=== PATIENT | female | born 1985 | race Caucasian/White ===

== ENCOUNTER 2022-03-16 10:57 | Inpatient (IN) | payer MEDICARE, SELFPAY ==
[2022-03-16] VITALS (19 sets, daily range): BP systolic 84–95; BP diastolic 48–64; PULSE 81–125; RESP 16–23; TEMP 36.4–36.9; O2SAT 98–100; BMI 19.1; BMI 18.5
--- NOTE | 2022-03-16 11:13 | ED.VIS.GI ---
HPI HPI - GI History of Present Illness Chief Complaint: Nausea/Vomiting Informant: patient Abdominal Pain/Flank Pain Onset: Days (6) Context: Sudden Onset Timing: Continuous Quality: Aching Location: Diffuse Worsened by: Nothing Relieved by: Nothing Nausea/Vomiting/Emesis GI Symptom: Positive for Nausea and Vomiting Onset: Days (6) Quality: Negative for Blood streaks, Coffee ground and Hematemesis Diarrhea/Melena/Hematochezia GI Symptom: Negative for Diarrhea, Melena and Hematochezia Associated Symptoms Associated Symptoms: Negative for Dysuria and Hematuria Narrative Narrative: Patient presents with nausea, vomiting, and abdominal pain that has been constant for the last 6 days. Patient states that her pain is diffuse across her abdomen. Patient describes it as aching. Patient states nothing makes it better nothing makes it worse. Patient states she is unable to keep anything down. Patient states that everything she tries to eat comes back up. Patient denies any hematemesis or coffee-ground emesis. Patient denies any diarrhea, melena, or hematochezia. Patient states she has not urinated in the last 3 days but denies any dysuria or hematuria prior to that. Patient admits to a fever at home of up to 102. Patient also admits to general myalgias. [facility] Medical History Anxiety Bipolar 1 disorder Depression Home Medications buspirone 30 mg PO BID 03/16/22 [History Last Taken Unknown] cyclobenzaprine [Flexeril] 2.5 mg PO TID PRN 03/16/22 [History Last Taken Unknown] empagliflozin [Jardiance] 25 mg PO DAILY 03/16/22 [History Last Taken Unknown] escitalopram oxalate 20 mg PO DAILY 03/16/22 [History Last Taken Unknown] glipizide 2.5 mg PO BID 03/16/22 [History Last Taken Unknown] hydroxyzine HCl 50 mg PO TID PRN 03/16/22 [History Last Taken Unknown] lamotrigine 50 mg PO DAILY 03/16/22 [History Last Taken Unknown] lisinopril 2.5 mg PO DAILY 03/16/22 [History Last Taken Unknown] lubiprostone 8 mcg PO BID 03/16/22 [History Last Taken Unknown] naproxen 500 mg PO BID PRN 03/16/22 [History Last Taken Unknown] olanzapine 20 mg PO DAILY 03/16/22 [History Last Taken Unknown] omeprazole 40 mg PO DAILY 03/16/22 [History Last Taken Unknown] oxybutynin chloride 10 mg PO DAILY 03/16/22 [History Last Taken Unknown] prazosin 1 mg PO QHS 03/16/22 [History Last Taken Unknown] trazodone 25 mg PO QHS PRN 03/16/22 [History Last Taken Unknown] Allergy/AdvReac Type Severity Reaction Status Date / Time codeine AdvReac Other Verified 03/16/22 11:07 sulfamethoxazole AdvReac Nausea/Vom/ Verified 03/16/22 11:07 [From Bactrim] Diarrhea tramadol AdvReac Other Verified 03/16/22 11:07 trimethoprim [From Bactrim] AdvReac Nausea/Vom/ Verified 03/16/22 11:07 Diarrhea Surgical History H/O: hysterectomy Hx of section Tubal ligation status Social History Smoking Status: Current every day smoker tobacco type: cigarettes ROS ROS ED Constitutional Constitutional ED: Reports chills and fever(s) Eyes Eyes: Denies blurry vision or change in vision ENT ENT ED: Reports sore throat; Denies rhinorrhea Cardiovascular Cardiovascular: Denies chest pain or palpitations Respiratory/Chest Respiratory/Chest: Denies cough or dyspnea Gastrointestinal Gastrointestinal: Reports abdominal pain, nausea and vomiting; Denies diarrhea or melena Genitourinary Genitourinary ED: Denies dysuria or hematuria Musculoskeletal Musculoskeletal: Reports back pain and myalgias; Denies neck pain Integumentary Denies abscess or rash Neurologic Neurologic: Reports headache(s); Denies weakness Allergic/Immunologic Allergic/Immunologic ED: Denies mouth swelling or urticaria EXAM Physical Exam Const Vital Signs: 03/16/22 11:00 03/16/22 11:05 03/16/22 12:05 Temperature 97.6 F L 97.6 F L 98 F Temperature Source Temporal Temporal Temporal Pulse Rate 125 H 115 H 99 Respiratory Rate 16 16 18 Blood Pressure 86/50 L 86/50 L 94/57 L Blood Pressure Mean 62 62 69 Pulse Ox 100 100 99 Oxygen Delivery Method Room Air Room Air Room Air 03/16/22 13:08 Temperature 98 F Temperature Source Temporal Pulse Rate 100 Respiratory Rate 18 Blood Pressure 92/58 L Blood Pressure Mean 69 Pulse Ox 100 Oxygen Delivery Method Room Air Positive well nourished, well developed and unkempt General Appearance ED: unkempt, well developed and NAD HEENT Reports moist mucous membranes Neck supple and no JVD Resp normal respiratory effort and clear to auscultation bilaterally Cardio regular rate, regular rhythm and no murmurs GI normal to inspection, nondistended, normoactive bowel sounds and non-distended Auscultation: normoactive bowel sounds Palpation: soft and tender epigastric, LLQ, RLQ, LUQ, RUQ, periumbilical and suprapubic Extremity normal to inspection General Extremety ED: Negative for edema or tenderness General Extremity: Negative for edema Neuro oriented x3, CN's II-XII intact bilaterally and no sensory deficits noted Sensorium / Orientation: alert Motor Exam: strength 5/5 throughout Psych mental status grossly normal Appearance: unkempt Skin no rashes or lesions noted MDM MDM MDM Narrative Medical decision making narrative: Patient was given 2 L of IV fluids. CBC shows a leukocytosis of 13.3. Hemoglobin was 10.7 and hematocrit was 33.7. Comprehensive metabolic profile showed a creatinine of 7.91 and a BUN of 68. Anion gap was elevated at 17. Sodium was 125 and chloride was 87. CO2 was normal at 21. Glucose was elevated at 147. Urinalysis shows cloudy yellow urine with a specific gravity of 1.015. Leukocyte esterase was 500 with 50-100 white blood cells and 3+ bacteria. Ketones were 5. Glucose was 250. Lactate was normal at 1.0. COVID-19 rapid antigen was obtained and was positive. Influenza A swab was negative. Influenza B swab was positive. CT scan of the abdomen pelvis was ordered. There is no acute intra-abdominal abnormality. This was interpreted by the radiologist and reviewed by myself. Blood cultures were obtained. Urine culture was ordered. Patient was started on Rocephin. Patient was also started on insulin drip. Case was discussed with the hospitalist. She will admit the patient to ICU. Patient understood and was agreeable with the plan. All questions were answered. Lab Data Attestation: I reviewed the patient's lab results. Labs: Laboratory Results - last 24 hr 03/16/22 03/16/22 03/16/22 11:24 11:24 11:40 WBC 13.3 H RBC 4.54 Hgb 10.7 L Hct 33.7 L MCV 74.2 L MCH 23.6 L MCHC 31.8 L RDW Std Deviation 65.1 H RDW Coeff of Tavo 25.0 H Plt Count 446 MPV 10.1 Immature Gran % (Auto) 0.600 Neut % (Auto) 79.7 H Lymph % (Auto) 8.9 L [place] % (Auto) 10.4 H Eos % (Auto) 0.2 Baso % (Auto) 0.2 Absolute Neuts (auto) 10.6 H Absolute Lymphs (auto) 1.18 Nucleated RBC % 0 Differential Comment SCANNED Anisocytosis 2+ Sodium 125 L Potassium 3.6 Chloride 87 L Carbon Dioxide 21.0 Anion Gap 17 H BUN 68 H Creatinine 7.91 H* Estim Creat Clear Calc 8.79 Est GFR (MDRD) Af Amer 7 L Est GFR (MDRD) Non-Af 6 L BUN/Creatinine Ratio 8.6 L Glucose 147 H Lactic Acid Calcium 8.7 Total Bilirubin 1.20 H AST 15 ALT 20 Alkaline Phosphatase 238 H Total Protein 8.0 Albumin 2.6 L Globulin 5.4 H Albumin/Globulin Ratio 0.5 L Lipase 35 L Urine Color Yellow Urine Clarity Cloudy Urine pH 5.0 Ur Specific [place] 1.015 Urine Protein 30 H Urine Glucose (UA) 250 H Urine Ketones 5 H Urine Occult Blood 50 H Urine Nitrite Negative Urine Bilirubin 1 H Urine Urobilinogen Normal Ur Leukocyte Esterase 500 H Urine RBC 0-5 SEEN Urine WBC 50-100 SEEN Ur Squamous Epith Cells 0-5 SEEN Urine Bacteria 3+ Urine Mucus 0 SEEN 03/16/22 12:30 WBC RBC Hgb Hct MCV MCH MCHC RDW Std Deviation RDW Coeff of [place] Plt Count MPV Immature Gran % (Auto) Neut % (Auto) Lymph % (Auto) [place] % (Auto) Eos % (Auto) Baso % (Auto) Absolute Neuts (auto) Absolute Lymphs (auto) Nucleated RBC % Differential Comment Anisocytosis Sodium Potassium Chloride Carbon Dioxide Anion Gap BUN Creatinine Estim Creat Clear Calc Est GFR (MDRD) Af Amer Est GFR (MDRD) Non-Af BUN/Creatinine Ratio Glucose Lactic Acid 1.0 Calcium Total Bilirubin AST ALT Alkaline Phosphatase Total Protein Albumin Globulin Albumin/Globulin Ratio Lipase Urine Color Urine Clarity Urine pH Ur Specific [place] Urine Protein Urine Glucose (UA) Urine Ketones Urine Occult Blood Urine Nitrite Urine Bilirubin Urine Urobilinogen Ur Leukocyte Esterase Urine RBC Urine WBC Ur Squamous Epith Cells Urine Bacteria Urine Mucus Radiography Diagnostic Testing: Clinical Impression(s) from Imaging Studies Abdomen CT 03/16/22 11:59 IMPRESSION: Hepatomegaly. Sludge or gallstones in the gallbladder lumen. Moderate amount of fecal material is seen in the colon. 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
[2022-03-16] MEDS: Ondansetron 4 MG/2 ML Vial IV (11:29)
[2022-03-16] MEDS: 0.9% Normal Saline 1,000 ML 1000 ML IV ×2 (11:29→12:20)
[2022-03-16 11:36] LABS: Absolute Lymphocyte Count 1.18 X10^3/uL (0.83-4.51); Absolute Neutrophil Count 10.6 X10^3/uL (2.0-7.7); Basophil# 0.02 X10^3/uL; Basophil% 0.2 % (0-1); Eosinophil# 0.03 X10^3/uL; Eosinophils% 0.2 % (0-5); Hematocrit 33.7 % (37-47); Hemoglobin 10.7 g/dL (12.0-15.0); Lymphocyte # 1.18 X10^3/ul (0.83-4.51); Lymphocyte % 8.9 % (19-41); Mean Corp Hgb Conc 31.8 g/dL (32-36); Mean Corpuscular Hgb 23.6 pg (27.0-32.0); Mean Corpuscular Volume 74.2 fL (81-99); Mean Platelet Vol. 10.1 fl (6.2-12.0); Monocyte# 1.39 X10^3/uL; Monocyte% 10.4 % (0-10); NRBC Flagged by Analyzer 0 % (0-5); Neutrophil # 10.63 X10^3/uL (2.7-7.7); Neutrophil % 79.7 % (47-70); POSITIVE MORPHOLOGY YES; Platelet Count 446 K/mm3 (150-450); RBC Distribution Width SD 65.1 fl (35.1-43.9); Red Blood Count 4.54 M/mm3 (4.2-5.4); White Blood Count 13.3 K/mm3 (4.4-11.0)
[2022-03-16 11:44] LABS: Mucous, Urine 0 SEEN /hpf (<or=2+)
[2022-03-16 11:45] LABS: Color, Urine Yellow (Yellow); Glucose, Dipstick 250 mg/dl (Normal); Ketone-Dipstick 5 mg/dl (Negative); Leukocyte Esterase-Dipstick 500 /ul (Negative); Nitrite-Dipstick Negative (Negative); Occult Blood-Urine 50 /ul (Negative); Protein-Dipstick 30 mg/dl (Negative); Specific Gravity, Urine 1.015 (1.002-1.030); Urine Clarity Cloudy (Clear); Urine Urobilinogen Normal (Normal)
[2022-03-16 11:46] LABS: Differential Indicated SCAN CRITERIA MET
[2022-03-16 11:47] LABS: Urine Bilirubin Dipstick 1 mg/dL (Negative)
[2022-03-16 11:53] LABS: White Blood Cells 50-100 SEEN /hpf (0-5)
[2022-03-16 11:54] LABS: Bacteria 3+ /hpf (None Seen); Squamous Epithelial Cells - UA 0-5 SEEN /hpf (5-10)
[2022-03-16 11:54] LABS: ALB/GLOB Ratio 0.5 RATIO (0.9-2.4); AST(SGOT) 15 U/L (15-37); Alanine Aminotransfer ALT/SGPT 20 U/L (13-56); Albumin, Serum 2.6 g/dL (3.2-5.0); Alkaline Phosphatase 238 U/L (45-117); Anion Gap 17 (5-15); BUN 68 mg/dL (7-18); BUN/Creat Ratio 8.6 RATIO (10-20); Calcium,Total 8.7 mg/dL (8.5-10.1); Chloride 87 mmol/L (98-107); Creatinine, Serum 7.91 mg/dL (0.55-1.02); EST Glomerular Filtration Rate 6 mL/min (>60); Est Glom Filt Rate - Afr Amer 7 mL/min (>60); Estimated Creatinine Clearance 8.79 ml/min; Globulin 5.4 g/dL (2.2-4.2); Glucose 147 mg/dL (74-106); Lipase 35 U/L (73-393); Potassium 3.6 mmol/L (3.5-5.1); Sodium Level 125 mmol/L (136-145)
[2022-03-16 11:58] LABS: Red Blood Cells-Urine 0-5 SEEN /hpf (0-5)
--- NOTE | 2022-03-16 11:59 | CT_ITS ---
STUDY: CT ABDOMEN AND PELVIS WITHOUT CONTRAST REASON FOR EXAM: Female, 37 years old. 6 day history of nausea and vomiting with body aches and chills. RADIATION DOSAGE (If Supplied By Facility): CTDIvol = ( 6.10 ) mGy, DLP = ( 297.02 ) mGycm TECHNIQUE: Transaxial images were obtained from the dome of the diaphragm to the symphysis pubis without oral contrast, and without intravenous contrast. Sagittal and coronal images were reconstructed. Individualized dose optimization techniques were used for this CT. COMPARISON: Comparison is made with prior examination dated 05/20/2015. FINDINGS: The visualized lung bases are unremarkable. Minimal pericardial thickening. Hepatomegaly. Increased density seen within the gallbladder lumen. This is suggestive of either gallstones or sludge. Normal spleen. Normal pancreas. Normal bilateral adrenal glands. Normal right kidney. Normal left kidney. Normal visualized stomach. Normal small intestine. Moderate amount of fecal material is seen in the colon. The appendix is visualized and appears normal. Normal abdominal aorta. Normal inferior vena cava. There is borderline retroperitoneal lymphadenopathy with enlarged nodes no greater than 10mm in the short axis diameter. Normal urinary bladder. Follicles are seen in the right ovary. The patient is status post bilateral tubal ligation. There is a small umbilical hernia containing fat. Normal osseous structures. CT/Abdomen/Pel W ORAL Cont Only IMPRESSION: Hepatomegaly. Sludge or gallstones in the gallbladder lumen. Moderate amount of fecal material is seen in the colon. Electronically Signed: Joey Dang MD at 13:44 EDT ,
[2022-03-16 12:18] LABS: Anisocytosis 2+; Differential Comment SCANNED
[2022-03-16] MEDS: Morphine 4 MG/ML Syringe IV (12:18)
--- NOTE | 2022-03-16 12:18 | CM.ED ---
Social Work Note Pt has no PCP listed. SW in to speak with pt. SW introduced self. Pt states she has a PCP in [place] at [facility]. Pt states she would look a list of PCP in the area. SW provided pt with PCP list. Gertrudis Baldwin [employer] CONS[employer]ANT, [employer]
[2022-03-16] MEDS: Ceftriaxone 1 GM/50 ML BAG IV (12:38)
--- NOTE | 2022-03-16 13:52 | HP.PCM.HOS_ITS ---
HPI - General General Date of Admission: 03/16/22 Date of Service: 03/16/22 Chief Complaint: N/V, body aches, chills. HPI Narrative The patient is a 37 y/o F w/ PMHx: Microcytic anemia, Anxiety and Depression/Bipolar disorder, NIDDM, GERD, Tobacco use who presents to the [facility] ED on 03/16/22 with history of subjective fever, chills, frontal headaches, sore throat, congestion, alteration in sense of taste and smell, abdominal cramping with nausea and emesis in addition to body aches and mild dry cough but no dyspnea or diarrhea reporting that she did get vaccinated against COVID with the 2 dose Pfizer series but has not had any boosters. She additionally notes recent suprapubic discomfort and dysuria. Work-up in the ED included T97.6, heart rate 125, BP initially 86/50 with most recent repeat 92/58, respiratory rate 16, 100% on room air, CBC with WC 13.3, hemoglobin 10.7 with an MCV 74.2, platelet 446 with left shift, CMP with sodium 125, chloride 87, BUN/creatinine 68/7.91, anion gap 17, glucose 147, lactic acid 1.0, T bili 1.20, alk phos 238, lipase 35, urinalysis with elevated specific remedy 1.015, glucose 250, ketones 5, occult blood 50, negative nitrite, leukocyte esterase 500, urine WBCs 50-100 with 3+ urine bacteria, blood culture x2 pending per ED, rapid SARS and influenza with positive COVID and positive influenza B antigen, CT A/P with noted hepatomegaly, sludge or gallstones in the gallbladder lumen, moderate amount of fecal material is seen in the colon. In the ED patient ministered 2 L normal saline, Rocephin, morphine and Zofran therapy. Discussed with ED physician and given elevated anion gap, hyperglycemia and mild ketosis and the acute setting decision to initiate insulin drip although it may be short in duration especially if patient becomes hypoxic and necessitates steroids. PFSH Medical History Anxiety Bipolar 1 disorder Depression Microcytic anemia Tobacco use Home Medications buspirone 30 mg PO BID 03/16/22 [History Last Taken Unknown] cyclobenzaprine [Flexeril] 2.5 mg PO TID PRN 03/16/22 [History Last Taken Unknown] empagliflozin [Jardiance] 25 mg PO DAILY 03/16/22 [History Last Taken Unknown] escitalopram oxalate 20 mg PO DAILY 03/16/22 [History Last Taken Unknown] glipizide 2.5 mg PO BID 03/16/22 [History Last Taken Unknown] hydroxyzine HCl 50 mg PO TID PRN 03/16/22 [History Last Taken Unknown] lamotrigine 50 mg PO DAILY 03/16/22 [History Last Taken 03/16/22] lisinopril 2.5 mg PO DAILY 03/16/22 [History Last Taken Unknown] lubiprostone 8 mcg PO BID 03/16/22 [History Last Taken Unknown] naproxen 500 mg PO BID PRN 03/16/22 [History Last Taken Unknown] olanzapine 20 mg PO DAILY 03/16/22 [History Last Taken Unknown] omeprazole 40 mg PO DAILY 03/16/22 [History Last Taken Unknown] oxybutynin chloride 10 mg PO DAILY 03/16/22 [History Last Taken Unknown] prazosin 1 mg PO QHS 03/16/22 [History Last Taken Unknown] trazodone 25 mg PO QHS PRN 03/16/22 [History Last Taken Unknown] Allergy/AdvReac Type Severity Reaction Status Date / Time codeine AdvReac Other Verified 03/16/22 11:07 sulfamethoxazole AdvReac Nausea/Vom/ Verified 03/16/22 11:07 [From Bactrim] Diarrhea tramadol AdvReac Other Verified 03/16/22 11:07 trimethoprim [From Bactrim] AdvReac Nausea/Vom/ Verified 03/16/22 11:07 Diarrhea Family History (Updated 03/16/22 @ 14:[address] Shante Madrid MD) Mother Diabetes other (Patient denies marked paternal family history including HD, DM, CA.) Surgical History (Updated 03/16/22 @ 14:[address] Shante Madrid MD) H/O: hysterectomy History of repair of congenital cleft palate Hx of section Tubal ligation status Social History (Updated 03/16/22 @ 14:[address] Shante Madrid MD) household members: significant other Smoking Status: Current every day smoker tobacco type: cigarettes Smoking packs per day: 0.75 Smoking cigarettes per day: 15.0 Years smoked: 19 Smoking pack-years: 14.25 alcohol intake: never substance use type: does not use ROS ROS Narrative Admission Review of Systems: CONSTITUTIONAL: No weight loss, + fever, chills, weakness or fatigue. HEENT: + Headache, sore throat. Eyes: No visual loss, blurred vision, double vision or yellow sclerae. Ears, Nose, Throat: No hearing loss, sneezing. SKIN: No rash or itching, lesions, wounds. CARDIOVASCULAR: No chest pain, chest pressure or chest discomfort, palpitations, edema, orthopnea, syncopal events. RESPIRATORY: + cough, No marked shortness of breath, marked sputum, wheezing, hemoptysis. GASTROINTESTINAL: + Anorexia, nausea, vomiting, abdominal cramping, No diarrhea, melena, BRBPR. GENITOURINARY: + dysuria, frequency, suprapubic discomfort. NEUROLOGICAL: + headache, No dizziness, syncope, paralysis, ataxia, numbness or tingling in the extremities, focal weakness, change in bowel or bladder control, seizure. MUSCULOSKELETAL: + muscle, back pain, joint pain or stiffness. HEMATOLOGIC: + anemia, bleeding or bruising. LYMPHATICS: No enlarged nodes. No history of splenectomy. PSYCHIATRIC: + history of depression or anxiety. ENDOCRINOLOGIC: No reports of sweating, cold or heat intolerance. No polyuria or polydipsia. ALLERGIES: No history of asthma, hives, eczema or rhinitis. Vital Signs Vital Signs Vital Signs: 03/16/22 11:00 03/16/22 11:05 03/16/22 12:05 Temperature 97.6 F L 97.6 F L 98 F Temperature Source Temporal Temporal Temporal Pulse Rate 125 H 115 H 99 Respiratory Rate 16 16 18 Blood Pressure 86/50 L 86/50 L 94/57 L Blood Pressure Mean 62 62 69 Pulse Ox 100 100 99 Oxygen Delivery Method Room Air Room Air Room Air 03/16/22 13:08 Temperature 98 F Temperature Source Temporal Pulse Rate 100 Respiratory Rate 18 Blood Pressure 92/58 L Blood Pressure Mean 69 Pulse Ox 100 Oxygen Delivery Method Room Air Weight Weight: 126 lb 1.6 oz Body Mass Index (BMI) 19.1 Physical Exam Narrative Physical Examination: General: Awake, alert, oriented x 3 and cooperative, seated upright in the ED bed, fatigued and ill-appearing.. Skin: Normal color, normal turgor, no icterus, no cyanosis, noted new tattoo R forearm, no crusting or erythema noted. HEENT: AT/NC, EOMI, PERRLA, dry MM, no carotid bruits or JVD noted. Lungs: Diminished, greater bases, moderate effort, no rales, ronchi or wheezing. Heart: Tachycardic with regular rhythm; no gallop, rub audible. Abdomen: Soft, generalized TTP and suprapubic TTP, ND, hyperactive BS, no marked HSM. Extremities: No cyanosis, clubbing, or edema. Neurological: Patient awake, alert, oriented as noted, cognitive function intact; pupils equally reactive to light and accommodation, cranial nerves II- XII grossly normal, moving all 4 extremities, no focal deficits, strength moderately to severely globally decreased secondary to acute presentation. Psychiatric: Affect appears fatigued, ill-appearing, no acute evidence of depressive or anxiety feelings. Results Lab / Micro Data Result Diagrams: 03/16/22 11:24 03/16/22 11:24 Labs: Laboratory Results - last 24 hr 03/16/22 11:24: WBC 13.3 H, RBC 4.54, Hgb 10.7 L, Hct 33.7 L, MCV 74.2 L, MCH 23.6 L, MCHC 31.8 L, RDW Std Deviation 65.1 H, RDW Coeff of Tavo 25.0 H, Plt Count 446, MPV 10.1, Immature Gran % (Auto) 0.600, Neut % (Auto) 79.7 H, Lymph % (Auto) 8.9 L, Gaston % (Auto) 10.4 H, Eos % (Auto) 0.2, Baso % (Auto) 0.2, Absolute Neuts (auto) 10.6 H, Absolute Lymphs (auto) 1.18, Nucleated RBC % 0, Differential Comment SCANNED, Anisocytosis 2+ 03/16/22 11:24: Sodium 125 L, Potassium 3.6, Chloride 87 L, Carbon Dioxide 21.0, Anion Gap 17 H, BUN 68 H, Creatinine 7.91 H*, Estim Creat Clear Calc 8.79, Est GFR (MDRD) Af Amer 7 L, Est GFR (MDRD) Non-Af 6 L, BUN/Creatinine Ratio 8.6 L, Glucose 147 H, Calcium 8.7, Total Bilirubin 1.20 H, AST 15, ALT 20, Alkaline Phosphatase 238 H, Total Protein 8.0, Albumin 2.6 L, Globulin 5.4 H, Albumin/Globulin Ratio 0.5 L, Lipase 35 L 03/16/22 11:40: Urine Color Yellow, Urine Clarity Cloudy, Urine pH 5.0, Ur Speci fic [place] 1.015, Urine Protein 30 H, Urine Glucose (UA) 250 H, Urine Ketones 5 H, Urine Occult Blood 50 H, Urine Nitrite Negative, Urine Bilirubin 1 H, Urine Urobilinogen Normal, Ur Leukocyte Esterase 500 H, Urine RBC 0-5 SEEN, Urine WBC 50-100 SEEN, Ur Squamous Epith Cells 0-5 SEEN, Urine Bacteria 3+, Urine Mucus 0 SEEN 03/16/22 12:30: Lactic Acid 1.0 Micro: Microbiology 03/16/22 11:35 Nasal Secretion SARS-CoV-2 & FLU Antigen (Rapid) - Final Influenzae B SARS-CoV-2 (COVID 19) Radiology Impression Abdomen CT 03/16/22 11:59 IMPRESSION: Hepatomegaly. Sludge or gallstones in the gallbladder lumen. Moderate amount of fecal material is seen in the colon. Electronically Signed: Joey Dang MD at 13:44 EDT Reading Location ID and State: [facility] / [place] , Service support , Assessment & Plan Assessment/Plan (1) COVID-19: (2) Diabetic ketoacidosis: QUALIFIERS: Diabetes mellitus type: other specified (including SELVIN) Diabetes mellitus complication detail: without coma Qualified Code(s): E13.10 - Other specified diabetes mellitus with ketoacidosis without coma (3) Urinary tract infection: QUALIFIERS: Urinary tract infection type: acute cystitis Hematuria presence: without hematuria Qualified Code(s): N30.00 - Acute cystitis without hematuria (4) Acute kidney injury: (5) Sepsis: QUALIFIERS: Sepsis type: sepsis due to unspecified organism Sepsis acute organ dysfunction status: with acute organ dysfunction Severe sepsis acute organ dysfunction type: acute renal failure Acute renal failure type: unspecified Severe sepsis shock status: without septic shock Qualified Code(s): A41.9 - Sepsis, unspecified organism; R65.20 - Severe sepsis without septic shock; N17.9 - Acute kidney failure, unspecified PLAN: The patient is a 37 y/o F w/ PMHx: Microcytic anemia, Anxiety and Depression/Bipolar disorder, NIDDM, GERD, Tobacco use who presents to the [facility] ED on 03/16/22 with history of subjective fever, chills, frontal headaches, sore throat, congestion, alteration in sense of taste and smell, abdominal cramping with nausea and emesis in addition to body aches and mild dry cough but no dyspnea or diarrhea reporting that she did get vaccinated against COVID with the 2 dose Pfizer series but has not had any boosters with concurrent suprapubic discomfort/dysuria. #1. Acute Sepsis secondary to Intractable N/V, Myalgias secondary to Acute Viral Syndrome, COVID-19 and Possible Acute Influenza B Syndrome (lower suspicion, suspect false positive) in addition to #3, complicated by #2 and #4/#5: Will admit to the ICU given DKA concurrently, ICU physician consulted, maintain on COVID precautions with request for full respiratory panel and COVID PCR as the testing with omicron has often been false, will maintain on oxygen with wean as tolerated to room air, PRN albuterol, HOB, IS parameters w/ pending sputum cultures and urine antigens, will obtain D-dimer, procalcitonin, CRP, CPK, Ferritin, LDH, trop and BNP, will obtain CXR, will continue supportive care including q 2 hour turning including prone given no prone bed availability, given no hypoxia will defer steroids especially in DKA setting, will await full respiratory panel given poor renal function and if confirmation of positive influenza may initiate renally dosed tamiflu, given DKA will continue with aggressive fluids but closely monitor especially if confirmation COVID. #2. DKA w/ Diabetes mellitus type II: Will admit to the ICU, continue on insulin drip, check serial K+, glucose w/ IVF changes pending these levels, serial chemistry, obtain mag, phos daily w/ repletion as needed, transition to home SC regimen when gap closed w/ overlap on drip, nutrition consultation. Encouraged diet and insulin regimen compliance. HgbA1c pending. Holding low-do se lisinopril given JACKELYN concurrently. #3. Acute Complicated Urinary Tract Infection, labs more consistent with Pyelonephritis; however, no stranding on CT: UA upon ED evaluation remarkable, pending UCx, continue IVFs, monitor I/Os, continue IV Rocephin w/ transition as able pending sensitivities and speciation. Bld cx x 2 obtained in the ED. #4. Acute kidney injury: Secondary to acute presentation as noted #1, #2. Admission BUN/Cr 68/7.91, prior baseline creatinine noted to be 0.8-0.9. Will hydrate, hold nephrotoxic medications and repeat chemistry in AM. Will obtain FeNa assessment. #5. Electrolyte disturbances: Patient with significant electrolyte disturbance in the setting of significant GI losses with DKA concurrently, continue treatments as noted above, trend serial BMPs as noted. #6. Anxiety and Depression/bipolar disorder: We will continue patient medication however given renal function may need to alter regimen pending further BMP trending. #7. Tobacco Abuse: Encouraged cessation, inpatient consultation per RT, NR if desired. #8. Microcytic anemia: Admission hemoglobin 10.7, MCV 74.2, most recent prior labs to this 10/2015 noted to be 12-13, not on any outpatient iron supplementation per review of records, Fe panel, ferritin, guiac requested. #9. DVT prophylaxis: SCDs, heparin. Charges/Coding Visit Charges Inpatient E&M: 23674 Init Hosp L3
[2022-03-16 14:06] LABS: Bedside Glucose 150 mg/dL (74-106)
--- NOTE | 2022-03-16 14:30 | RAD_ITS ---
STUDY: X-RAY CHEST REASON FOR EXAM: Female, 37 years old. COVID TECHNIQUE: PA and lateral views of the chest. COMPARISON: None. FINDINGS: The lungs are clear and expanded. There is no demonstrated pleural abnormality. Normal size heart. Normal mediastinum and elizabeth. Normal visualized pulmonary arteries. Normal visualized aortic arch and descending thoracic aorta. Normal visualized thoracic spine. Normal visualized ribs, clavicles, and shoulders. There is no demonstrated abnormality of the visualized soft tissue structures of the upper abdomen. RAD/Chest PA and Lateral IMPRESSION: Normal x-ray examination of the chest. Electronically Signed: Joey Dang MD at 14:51 EDT ,
[2022-03-16 15:04] LABS: Amphetamine Urine VISTA NEGATIVE (<1000 ng/mL); Barbiturate Urine VISTA NEGATIVE (< 200 ng/mL); Benzodiazepine Urine VISTA NEGATIVE (< 200 ng/mL); Cocaine Urine VISTA NEGATIVE (< 300 ng/mL); Ecstacy Urine VISTA NEGATIVE (< 500 ng/mL); Methadone Urine VISTA NEGATIVE (< 300 ng/mL); PCP Urine VISTA NEGATIVE (< 25 ng/mL); THC Urine VISTA POSITIVE (< 50 ng/mL); Vista UDS pH Range 5
[2022-03-16] MEDS: Dext 5%-0.45% NS 1,000 ML 150 ML IV (15:05)
[2022-03-16] MEDS: Acetaminophen 325 MG Tablet 650 MG PO (15:59)
[2022-03-16] MEDS: 0.9% Normal Saline 1,000 ML 999 ML IV ×3 (16:00→21:47)
[2022-03-16 16:10] LABS: Urine Sodium 47 mmol/L (Not Establ.)
[2022-03-16 16:16] LABS: Bedside Glucose 75 mg/dL (74-106)
[2022-03-16 17:01] LABS: Anion Gap 12 (5-15); BUN 64 mg/dL (7-18); BUN/Creat Ratio 9.2 RATIO (10-20); Calcium,Total 7.2 mg/dL (8.5-10.1); Chloride 97 mmol/L (98-107); Creatinine, Serum 6.94 mg/dL (0.55-1.02); EST Glomerular Filtration Rate 7 mL/min (>60); Est Glom Filt Rate - Afr Amer 9 mL/min (>60); Estimated Creatinine Clearance 9.67 ml/min; Ferritin 105 ng/mL (8-252); Glucose 82 mg/dL (74-106); LDH 247 U/L (84-246); Magnesium 2.1 mg/dL (1.6-2.6); Phosphorus 3.9 mg/dL (2.5-4.9); Potassium 3.6 mmol/L (3.5-5.1); Sodium Level 127 mmol/L (136-145); Troponin-I HS < 3 pg/mL (3.0-54.0)
[2022-03-16 17:16] LABS: Bedside Glucose 73 mg/dL (74-106)
[2022-03-16 17:33] LABS: D-Dimer Quantitative (DVT/PE) 2.44 FEU/ug/m (0.27-0.49)
--- NOTE | 2022-03-16 17:40 | VDLE_ITS ---
Reason For Study: Elevated D Dimer RIGHT LEFT GSV is normal. GSV is normal. CFV, FV, and Pop V are compressible. CFV, FV, and Pop V are compressible. T/P Trunk is compressible. T/P Trunk is compressible. PTV is compressible. PTV is compressible. RT PerV is compressible. LT PerV is compressible. Procedure This is a venous duplex using B-mode, color flow and spectral Doppler. Exam performed portable in ICU/CCU. The exam was abbreviated due to the COVID 19 protocol. A preliminary report was called and/or faxed to [employer]. VL/Venous Duplex US - Efrain Extrem Interpretation Summary No evidence for acute deep venous thrombosis bilateral lower extremities with p atent and compressible bilateral great saphenous veins. Abbreviated COVID-19 protocol uti lized Ordering Physician: Shante Madrid Performed By: Marlon Nieves
[2022-03-16 19:21] LABS: Bedside Glucose 86 mg/dL (74-106)
[2022-03-16 19:46] LABS: Bedside Glucose 75 mg/dL (74-106)
[2022-03-16 20:02] LABS: Procalcitonin 0.89 ng/mL (0.00-0.09)
[2022-03-16 20:11] LABS: Anion Gap 10 (5-15); BUN 59 mg/dL (7-18); Calcium,Total 6.9 mg/dL (8.5-10.1); Chloride 100 mmol/L (98-107); Creatinine, Serum 6.57 mg/dL (0.55-1.02); EST Glomerular Filtration Rate 8 mL/min (>60); Est Glom Filt Rate - Afr Amer 9 mL/min (>60); Estimated Creatinine Clearance 10.22 ml/min; Glucose 70 mg/dL (74-106); Potassium 3.6 mmol/L (3.5-5.1); Sodium Level 130 mmol/L (136-145)
[2022-03-16 20:26] LABS: BNP,B-Type NATRIURETIC PEPTIDE 22.2 pg/mL (0-100)
[2022-03-16] MEDS: BENZOCAINE/MENTHOL 1 LOZENGE MUCOUS MEM (20:46)
[2022-03-16] MEDS: Heparin Injection (Vial) 5,000 UNIT/ML VIAL 5000 UNIT SC (20:46)
[2022-03-16] MEDS: Doxazosin 1 MG Tablet PO (20:47)
[2022-03-16] MEDS: busPIRone 15 MG TABLET 30 MG PO (21:47)
[2022-03-16] MEDS: 0.9% Normal Saline 1,000 ML 200 ML IV (23:01)
[2022-03-16] MEDS: cycloBENZAPRine HCl 5 MG TABLET 2.5 MG PO (23:37)
[2022-03-16 23:55] LABS: Bedside Glucose 72 mg/dL (74-106)
[2022-03-16 23:55] LABS: Bedside Glucose 72 mg/dL (74-106)
[2022-03-17] VITALS (13 sets, daily range): BP systolic 92–108; BP diastolic 53–76; PULSE 88–116; RESP 16–25; TEMP 36.6–37.4; O2SAT 95–100
[2022-03-17 00:53] LABS: Anion Gap 10 (5-15); BUN 53 mg/dL (7-18); BUN/Creat Ratio 9.2 RATIO (10-20); Calcium,Total 6.9 mg/dL (8.5-10.1); Chloride 105 mmol/L (98-107); Creatinine, Serum 5.77 mg/dL (0.55-1.02); EST Glomerular Filtration Rate 9 mL/min (>60); Est Glom Filt Rate - Afr Amer 11 mL/min (>60); Estimated Creatinine Clearance 11.63 ml/min; Glucose 80 mg/dL (74-106); Potassium 3.6 mmol/L (3.5-5.1); Sodium Level 134 mmol/L (136-145)
[2022-03-17] MEDS: hydrOXYzine PAM 25 MG Capsule 50 MG PO (02:28)
[2022-03-17] MEDS: 0.9% Normal Saline 1,000 ML 200 ML IV ×4 (03:23→20:11)
[2022-03-17 04:22] LABS: Absolute Lymphocyte Count 0.89 X10^3/uL (0.83-4.51); Absolute Neutrophil Count 7.8 X10^3/uL (2.0-7.7); Basophil# 0.01 X10^3/uL; Basophil% 0.1 % (0-1); Eosinophil# 0.03 X10^3/uL; Eosinophils% 0.3 % (0-5); Hematocrit 27.9 % (37-47); Hemoglobin 8.9 g/dL (12.0-15.0); Lymphocyte # 0.89 X10^3/ul (0.83-4.51); Lymphocyte % 9.3 % (19-41); Mean Corp Hgb Conc 31.9 g/dL (32-36); Mean Corpuscular Volume 75.2 fL (81-99); Mean Platelet Vol. 9.5 fl (6.2-12.0); Monocyte# 0.82 X10^3/uL; Monocyte% 8.6 % (0-10); NRBC Flagged by Analyzer 0 % (0-5); Neutrophil # 7.77 X10^3/uL (2.7-7.7); Neutrophil % 81.1 % (47-70); POSITIVE MORPHOLOGY YES; Platelet Count 343 K/mm3 (150-450); RBC Distribution Width SD 67.2 fl (35.1-43.9); Red Blood Count 3.71 M/mm3 (4.2-5.4); White Blood Count 9.6 K/mm3 (4.4-11.0)
[2022-03-17 04:23] LABS: Differential Indicated SCAN CRITERIA MET
[2022-03-17 04:38] LABS: Anisocytosis 2+; Microcytosis 2+
[2022-03-17 04:54] LABS: ALB/GLOB Ratio 0.5 RATIO (0.9-2.4); AST(SGOT) 34 U/L (15-37); Alanine Aminotransfer ALT/SGPT 31 U/L (13-56); Albumin, Serum 1.8 g/dL (3.2-5.0); Alkaline Phosphatase 232 U/L (45-117); Anion Gap 8 (5-15); BUN 48 mg/dL (7-18); BUN/Creat Ratio 9.6 RATIO (10-20); Calcium,Total 6.5 mg/dL (8.5-10.1); Chloride 109 mmol/L (98-107); Creatinine, Serum 4.98 mg/dL (0.55-1.02); EST Glomerular Filtration Rate 10 mL/min (>60); Est Glom Filt Rate - Afr Amer 13 mL/min (>60); Estimated Creatinine Clearance 13.48 ml/min; Globulin 3.9 g/dL (2.2-4.2); Glucose 81 mg/dL (74-106); Potassium 3.6 mmol/L (3.5-5.1); Protein, Total 5.7 g/dL (6.4-8.2); Sodium Level 135 mmol/L (136-145)
--- NOTE | 2022-03-17 05:48 | EX.PCM.CONCC ---
Assessment & Plan Assessment/Plan (1) Sepsis: QUALIFIERS: Acute renal failure type: unspecified Sepsis acute organ dysfunction status: with acute organ dysfunction Sepsis type: sepsis due to unspecified organism Severe sepsis acute organ dysfunction type: acute renal failure Severe sepsis shock status: without septic shock Qualified Code(s): A41.9 - Sepsis, unspecified organism; R65.20 - Severe sepsis without septic shock; N17.9 - Acute kidney failure, unspecified (2) Acute kidney injury: PLAN: RECOMMENDATIONS: 1. Continue aggressive fluid resuscitation. 2. Continue antimicrobials, pending culture results. 3. Continue nicotine replacement therapy. 4. Encourage incentive spirometer use and mobilize patient as tolerated. 5. Obtain infectious diseases consultation. IMPRESSIONS: 1. Sepsis The patient presented to the hospital with sepsis due to suspected urinary tract source of infection with acute sepsis related organ dysfunction as evidenced by acute kidney injury. The patient was subsequently volume resuscitated and placed on empiric antimicrobials. Cultures are currently pending. Plan to continue ongoing hydration, as the patient still appears markedly dehydrated. Although the patient initially tested positive for influenza and COVID on her rapid antigen testing, subsequent PCR was negative. Chest x-ray was unremarkable and the patient is maintaining appropriate oxygen saturations on room air. At this time, recommend consultation to infectious diseases for input regarding interpretation and management of potential COVID. 2. Acute kidney injury Likely prerenal in etiology and related to #1 and generalized intravascular volume depletion in the setting of protracted nausea and vomiting. Anticipate further improvement in creatinine and urine output with ongoing volume resuscitation. Continue to monitor urine output. No current indication for renal replacement therapy. 3. Chronic tobacco dependency I personally spent 3 minutes discussing the deleterious effects of continued tobacco use with the patient, including modalities which could utilize to achieve a smoke-free lifestyle. Nicotine replacement therapy will be utilized while the patient is admitted to the hospital. 4. Chronic anemia/anxiety/depression/diabetes mellitus Complicates care, management, recovery and prognosis. Continue Accu-Cheks and sliding scale insulin coverage. This note was generated with [employer] dictation software. It may contain incorrect words, spelling, and punctuation that were not noted in checking the note before signing. HPI Consult Data Date of Consult: 03/17/22 HPI Narrative Reason for Consultation: Sepsis, COVID, DKA, JACKELYN, UTI HPI Narrative: The patient is a 37-year-old female, with a history as outlined below, who presented to the emergency department on March 16 via EMS with nausea and vomiting of approximately 6 days duration. The patient is currently vaccinated against COVID-19 but is yet to be boosted. The patient has never previously had any issues controlling her diabetes mellitus. She is a current smoker of 0.5 packs of cigarettes per day. She denies any recent COVID exposures. She does report the presence of generalized muscle aches, but denies any fevers, chills, rhinorrhea, headaches or postnasal drip. She does report decreased p.o. intake along with decreased urine output over the last several days. She similarly denies the presence of shortness of breath or cough. On presentation to the emergency department, the patient was noted to be afebrile but was tachycardic with tenuous hemodynamics. She was maintaining appropriate oxygen saturations on room air. Initial laboratory evaluation revealed a white blood cell count of 13,000. D-dimer was noted to be 2.4. Chemistry profile was notable for a sodium of 125, chloride of 87, anion gap of 17, BUN of 68 and creatinine of 7.91. Lactate was normal at 1.0. Total bili was increased at 1.2. CRP was increased to 232. Procalcitonin was noted to be 0.89. Urinalysis was positive for leukocyte esterase and 3+ urine bacteria. Toxicology screen was positive for cannabinoids. The patient's initial rapid antigen screen was positive for COVID and influenza. However, a follow-up respiratory viral panel PCR was negative. COVID PCR was likewise negative. CT abdomen revealed hepatomegaly with sludge or gallstones in the gallbladder lumen. Chest x-ray was unremarkable. The patient received supplemental IV fluid hydration and was started on a microbials. There was some initial concern for possible mild DKA. Therefore, the patient was placed transiently on an insulin infusion. This has since been discontinued. FOR[facility]LY [facility] Medical History Anxiety Bipolar 1 disorder Depression Diabetes Microcytic anemia Migraines Mitral valve prolapse Tobacco use Home Medications buspirone 30 mg PO BID 03/16/22 [History Last Taken 03/16/22] cyclobenzaprine [Flexeril] 7.5 mg PO TID PRN 03/16/22 [History Last Taken Unknown] empagliflozin [Jardiance] 25 mg PO DAILY 03/16/22 [History Last Taken 03/16/22] escitalopram oxalate 20 mg PO DAILY 03/16/22 [History Last Taken 03/16/22] glipizide 2.5 mg PO BID@0900,1700 03/16/22 [History Last Taken 03/16/22] hydroxyzine HCl 50 mg PO TID PRN 03/16/22 [History Last Taken Unknown] lamotrigine 50 mg PO DAILY 03/16/22 [History Last Taken 03/16/22] lisinopril 2.5 mg PO DAILY 03/16/22 [History Last Taken 03/16/22] lubiprostone 8 mcg PO BID 03/16/22 [History Last Taken 03/16/22] naproxen 500 mg PO BID PRN 03/16/22 [History Last Taken Unknown] olanzapine 20 mg PO DAILY 03/16/22 [History Last Taken 03/14/22] omeprazole 40 mg PO DAILY 03/16/22 [History Last Taken 03/16/22] oxybutynin chloride 10 mg PO DAILY 03/16/22 [History Last Taken 03/16/22] prazosin 1 mg PO QHS 03/16/22 [History Last Taken 03/14/22] trazodone 25 mg PO QHS PRN 03/16/22 [History Last Taken Unknown] Allergy/AdvReac Type Severity Reaction Status Date / Time codeine AdvReac Other Verified 03/16/22 11:07 sulfamethoxazole AdvReac Nausea/Vom/ Verified 03/16/22 11:07 [From Bactrim] Diarrhea tramadol AdvReac Other Verified 03/16/22 11:07 trimethoprim [From Bactrim] AdvReac Nausea/Vom/ Verified 03/16/22 11:07 Diarrhea Family History (Updated 03/16/22 @ 14:[address] Shante Madrid MD) Mother Diabetes Family History other Surgical History (Updated 03/16/22 @ 14:[address] Shante Madrid MD) H/O: hysterectomy History of repair of congenital cleft palate Hx of section Tubal ligation status Social History (Updated 03/16/22 @ 14:[address] Shante Madrid MD) household members: significant other Smoking Status: Current every day smoker tobacco type: cigarettes Smoking packs per day: 0.75 Smoking cigarettes per day: 15.0 Years smoked: 19 Smoking pack-years: 14.25 alcohol intake: never substance use type: does not use ROS Constitutional Constitutional: Reports body ache(s), fatigue and malaise; Denies chills or fever(s) Eyes Eyes: Denies blurry vision or change in vision ENT HEENT: Denies dizziness, dysphagia, headache(s), loss taste/smell or nasal congestion Cardiovascular Cardiovascular: Denies chest pain, dizziness or dyspnea Respiratory/Chest Respiratory/Chest: Denies cough or dyspnea Gastrointestinal Gastrointestinal: Reports nausea and vomiting; Denies abdominal pain or diarrhea Genitourinary Genitourinary: Reports difficulty urinating Musculoskeletal Musculoskeletal: Denies back pain Integumentary Integumentary: Denies lesions, rash or skin ulcer Neurologic Neurologic: Denies abnormal gait or abnormal speech Psychiatric Psychiatric: Reports anxiety Endocrine Endocrinology: Reports fatigue Hematologic/Lymphatic Hematologic/Lymphatic: Denies easy bleeding or easy bruising Physical Exam Const alert and no apparent distress Constitutional Narrative: Fatigued in appearance. General Appearance: cooperative HEENT normocephalic and head/scalp atraumatic HEENT Narrative: Dry mucous membranes Eyes PERRL, EOMs intact bilaterally and conjunctivae normal Neck supple General: trachea midline Chest inspection of chest normal Resp normal respiratory effort and no use of accessory muscles Effort and Inspection: able to speak in complete sentences Auscultation: Negative for rales, rhonchi or wheezes Cardio S1 normal heart sound and S2 normal heart sound Rate: tachycardic GI normal to inspection, nondistended, normoactive bowel sounds Extremity no clubbing, cyanosis or edema Skin no rashes or lesions noted Neuro CN's II-XII intact bilaterally, moves all extremities and no focal motor deficits Psych Mood & Affect: flat affect Lab / Micro Data Result Diagrams: 03/17/22 04:15 03/17/22 04:15 Labs: Laboratory Results - last 24 hr 03/16/22 11:24: WBC 13.3 H, RBC 4.54, Hgb 10.7 L, Hct 33.7 L, MCV 74.2 L, MCH 23.6 L, MCHC 31.8 L, RDW Std Deviation 65.1 H, RDW Coeff of Tavo 25.0 H, Plt Count 446, MPV 10.1, Immature Gran % (Auto) 0.600, Neut % (Auto) 79.7 H, Lymph % (Auto) 8.9 L, [place] % (Auto) 10.4 H, Eos % (Auto) 0.2, Baso % (Auto) 0.2, Absolute Neuts (auto) 10.6 H, Absolute Lymphs (auto) 1.18, Nucleated RBC % 0, Differential Comment SCANNED, Anisocytosis 2+ 03/16/22 11:24: Sodium 125 L, Potassium 3.6, Chloride 87 L, Carbon Dioxide 21.0, Anion Gap 17 H, BUN 68 H, Creatinine 7.91 H*, Estim Creat Clear Calc 8.79, Est GFR (MDRD) Af Amer 7 L, Est GFR (MDRD) Non-Af 6 L, BUN/Creatinine Ratio 8.6 L, Glucose 147 H, Calcium 8.7, Total Bilirubin 1.20 H, AST 15, ALT 20, Alkaline Phosphatase 238 H, Total Protein 8.0, Albumin 2.6 L, Globulin 5.4 H, Albumin/Globulin Ratio 0.5 L, Lipase 35 L 03/16/22 11:40: Urine Color Yellow, Urine Clarity Cloudy, Urine pH 5.0, Ur Specific [place] 1.015, Urine Protein 30 H, Urine Glucose (UA) 250 H, Urine Ketones 5 H, Urine Occult Blood 50 H, Urine Nitrite Negative, Urine Bilirubin 1 H, Urine Urobilinogen Normal, Ur Leukocyte Esterase 500 H, Urine RBC 0-5 SEEN, Urine WBC 50-100 SEEN, Ur Squamous Epith Cells 0-5 SEEN, Urine Bacteria 3+, Urine Mucus 0 SEEN 03/16/22 12:30: Lactic Acid 1.0 03/16/22 14:02: POC Glucose 150 H 03/16/22 14:20: Urine Opiates Screen NEGATIVE, Urine Methadone Screen NEGATIVE, Ur Barbiturates Screen NEGATIVE, Ur Phencyclidine Scrn NEGATIVE, Ur Amphetamines Screen NEGATIVE, MDMA (Ecstasy) Screen NEGATIVE, U Benzodiazepines Scrn NEGATIVE, Urine Cocaine Screen NEGATIVE, U Cannabinoids Screen POSITIVE H, Ur Drug Screen Comment 03/16/22 14:20: Ur Random Sodium 47, Urine Creatinine 91.20 03/16/22 15:35: D-Dimer Quant (PE/DVT) 2.44 H* 03/16/22 15:35: Sodium 127 L, Potassium 3.6, Chloride 97 L, Carbon Dioxide 18.0 L, Anion Gap 12, BUN 64 H, Creatinine 6.94 H, Estim Creat Clear Calc 9.67, Est GFR (MDRD) Af Amer 9 L, Est GFR (MDRD) Non-Af 7 L, BUN/Creatinine Ratio 9.2 L, Glucose 82, Calcium 7.2 L, Phosphorus 3.9, Magnesium 2.1, Ferritin 105, Lactate Dehydrogenase 247 H, Troponin I High Sens < 3 L, C-React Prot Ext Range 232.00 H 03/16/22 15:35: B-Natriuretic Peptide 22.2 03/16/22 15:35: Procalcitonin 0.89 H 03/16/22 15:52: POC Glucose 75 03/16/22 16:00: COVID-19 (MYLES) Not Detected 03/16/22 17:06: POC Glucose 73 L 03/16/22 18:08: POC Glucose 86 03/16/22 18:57: POC Glucose 72 L 03/16/22 19:33: POC Glucose 75 03/16/22 19:38: Sodium 130 L, Potassium 3.6, Chloride 100, Carbon Dioxide 20.0 L, Anion Gap 10, BUN 59 H, Creatinine 6.57 H, Estim Creat Clear Calc 10.22, Est GFR (MDRD) Af Amer 9 L, Est GFR (MDRD) Non-Af 8 L, BUN/Creatinine Ratio 9.0 L, Glucose 70 L, Calcium 6.9 L 03/16/22 23:49: POC Glucose 72 L 03/16/22 23:50: Sodium Cancelled, Potassium Cancelled, Chloride Cancelled, Carbon Dioxide Cancelled, Anion Gap Cancelled, BUN Cancelled, Creatinine Cancelled, Estim Creat Clear Calc Cancelled, Est GFR (MDRD) Af Amer Cancelled, Est GFR (MDRD) Non-Af Cancelled, BUN/Creatinine Ratio Cancelled, Glucose Cancelled, Calcium Cancelled 03/17/22 00:25: Sodium 134 L, Potassium 3.6, Chloride 105, Carbon Dioxide 19.0 L, Anion Gap 10, BUN 53 H, Creatinine 5.77 H, Estim Creat Clear Calc 11.63, Est GFR (MDRD) Af Amer 11 L, Est GFR (MDRD) Non-Af 9 L, BUN/Creatinine Ratio 9.2 L, Glucose 80, Calcium 6.9 L 03/17/22 04:15: WBC 9.6, RBC 3.71 L, Hgb 8.9 L, Hct 27.9 L, MCV 75.2 L, MCH 24.0 L, MCHC 31.9 L, RDW Std Deviation 67.2 H, RDW Coeff of Tavo 25.0 H, Plt Count 343, MPV 9.5, Immature Gran % (Auto) 0.600, Neut % (Auto) 81.1 H, Lymph % (Auto) 9.3 L, [place] % (Auto) 8.6, Eos % (Auto) 0.3, Baso % (Auto) 0.1, Absolute Neuts (auto) 7.8 H, Absolute Lymphs (auto) 0.89, Nucleated RBC % 0, Anisocytosis 2+, Microcytosis 2+ 03/17/22 04:15: Sodium 135 L, Potassium 3.6, Chloride 109 H, Carbon Dioxide 18.0 L, Anion Gap 8, BUN 48 H, Creatinine 4.98 H, Estim Creat Clear Calc 13.48, Est GFR (MDRD) Af Amer 13 L, Est GFR (MDRD) Non-Af 10 L, BUN/Creatinine Ratio 9.6 L, Glucose 81, Calcium 6.5 L*, Total Bilirubin 0.70, AST 34, ALT 31, Alkaline Phosphatase 232 H, Total Protein 5.7 L, Albumin 1.8 L, Globulin 3.9, Albumin/Globulin Ratio 0.5 L Micro: Microbiology 03/16/22 16:00 Mucosa - Nose Respiratory Panel (PCR) - Final 03/16/22 14:20 Urine, Clean Catch Legionella Antigen - Final 03/16/22 14:20 Urine, Clean Catch Streptococcus pneumoniae Antigen (M - Final 03/16/22 11:35 Nasal Secretion SARS-CoV-2 & FLU Antigen (Rapid) - Final Influenzae B SARS-CoV-2 (COVID 19) Radiology Impression Abdomen CT 03/16/22 11:59 IMPRESSION: Hepatomegaly. Sludge or gallstones in the gallbladder lumen. Moderate amount of fecal material is seen in the colon. Electronically Signed: Joey Dang MD at 13:44 EDT , Chest X-Ray 03/16/22 14:30 IMPRESSION: Normal x-ray examination of the chest. Electronically Signed: Joey Dang MD at 14:51 EDT , Charges/Coding Visit Charges Inpatient E&M: 03839 Init Hosp L3 Behavior Interventions Behavior Intervention: 35079 Smoking Cessation 3-10 min
--- NOTE | 2022-03-17 07:04 | PN.HOSP_ITS ---
Subjective Subjective Patient is admitted in ICU for nausea, vomiting, abdominal pain, fever at home 102 Fahrenheit, did not urinate for last 3 days as per ER physician note for last 6 days along with elevated anion gap, increased anion gap metabolic acidosis, increased BUN/creatinine 68/1.91 in ICU. COVID-19 rapid antigen and influenza B positive. CT abdomen/pelvis showed no acute intra-abdominal abnormality. Blood culture and urine culture obtained and patient further admitted in ICU. Objective Data Objective Data Vital Signs: Vital Signs Temp Pulse Resp BP Pulse Ox 98 F 110 H 22 H 101/76 100 03/17/22 04:00 03/17/22 07:00 03/17/22 07:00 03/17/22 07:00 03/17/22 07:00 Oxygen Delivery Method Room Air Weight: 121 lb 11.123 oz Body Mass Index (BMI) 18.5 Intake & Output: Intake and Output for Last 24 Hours 03/15/22 03/16/22 03/17/22 23:59 23:59 23:59 Intake Total 6347.93 / 6347.93 1693.33 / 1693.33 Output Total 2900 / 2900 Balance 6347.93 / 6347.93 -1206.67 / -1206.67 Lab / Micro Data Result Diagrams: 03/17/22 04:15 03/17/22 04:15 Labs: Laboratory Results - last 24 hr 03/16/22 11:24: WBC 13.3 H, RBC 4.54, Hgb 10.7 L, Hct 33.7 L, MCV 74.2 L, MCH 23.6 L, MCHC 31.8 L, RDW Std Deviation 65.1 H, RDW Coeff of [place]avo 25.0 H, Plt Count 446, MPV 10.1, Immature Gran % (Auto) 0.600, Neut % (Auto) 79.7 H, Lymph % (Auto) 8.9 L, [place] % (Auto) 10.4 H, Eos % (Auto) 0.2, Baso % (Auto) 0.2, A bsolute Neuts (auto) 10.6 H, Absolute Lymphs (auto) 1.18, Nucleated RBC % 0, Differential Comment SCANNED, Anisocytosis 2+ 03/16/22 11:24: Sodium 125 L, Potassium 3.6, Chloride 87 L, Carbon Dioxide 21.0, Anion Gap 17 H, BUN 68 H, Creatinine 7.91 H*, Estim Creat Clear Calc 8.79, Est GFR (MDRD) Af Amer 7 L, Est GFR (MDRD) Non-Af 6 L, BUN/Creatinine Ratio 8.6 L, Glucose 147 H, Calcium 8.7, Total Bilirubin 1.20 H, AST 15, ALT 20, Alkaline Phosphatase 238 H, Total Protein 8.0, Albumin 2.6 L, Globulin 5.4 H, Albumin/Globulin Ratio 0.5 L, Lipase 35 L 03/16/22 11:40: Urine Color Yellow, Urine Clarity Cloudy, Urine pH 5.0, Ur Specific [place] 1.015, Urine Protein 30 H, Urine Glucose (UA) 250 H, Urine Ketones 5 H, Urine Occult Blood 50 H, Urine Nitrite Negative, Urine Bilirubin 1 H, Urine Urobilinogen Normal, Ur Leukocyte Esterase 500 H, Urine RBC 0-5 SEEN, U rine WBC 50-100 SEEN, Ur Squamous Epith Cells 0-5 SEEN, Urine Bacteria 3+, Urine Mucus 0 SEEN 03/16/22 12:30: Lactic Acid 1.0 03/16/22 14:02: POC Glucose 150 H 03/16/22 14:20: Urine Opiates Screen NEGATIVE, Urine Methadone Screen NEGATIVE, Ur Barbiturates Screen NEGATIVE, Ur Phencyclidine Scrn NEGATIVE, Ur Amphetamines Screen NEGATIVE, MDMA (Ecstasy) Screen NEGATIVE, U Benzodiazepines Scrn NEGATIVE, Urine Cocaine Screen NEGATIVE, U Cannabinoids Screen POSITIVE H, Ur Drug Screen Comment 03/16/22 14:20: Ur Random Sodium 47, Urine Creatinine 91.20 03/16/22 15:35: D-Dimer Quant (PE/DVT) 2.44 H* 03/16/22 15:35: Sodium 127 L, Potassium 3.6, Chloride 97 L, Carbon Dioxide 18.0 L, Anion Gap 12, BUN 64 H, Creatinine 6.94 H, Estim Creat Clear Calc 9.67, Est GFR (MDRD) Af Amer 9 L, Est GFR (MDRD) Non-Af 7 L, BUN/Creatinine Ratio 9.2 L, Glucose 82, Calcium 7.2 L, Phosphorus 3.9, Magnesium 2.1, Ferritin 105, Lactate Dehydrogenase 247 H, Troponin I High Sens < 3 L, C-React Prot Ext Range 232.00 H 03/16/22 15:35: B-Natriuretic Peptide 22.2 03/16/22 15:35: Procalcitonin 0.89 H 03/16/22 15:52: POC Glucose 75 03/16/22 16:00: COVID-19 (MYLES) Not Detected 03/16/22 17:06: POC Glucose 73 L 03/16/22 18:08: POC Glucose 86 03/16/22 18:57: POC Glucose 72 L 03/16/22 19:33: POC Glucose 75 03/16/22 19:38: Sodium 130 L, Potassium 3.6, Chloride 100, Carbon Dioxide 20.0 L , Anion Gap 10, BUN 59 H, Creatinine 6.57 H, Estim Creat Clear Calc 10.22, Est GFR (MDRD) Af Amer 9 L, Est GFR (MDRD) Non-Af 8 L, BUN/Creatinine Ratio 9.0 L, Glucose 70 L, Calcium 6.9 L 03/16/22 23:49: POC Glucose 72 L 03/17/22 00:25: Sodium 134 L, Potassium 3.6, Chloride 105, Carbon Dioxide 19.0 L , Anion Gap 10, BUN 53 H, Creatinine 5.77 H, Estim Creat Clear Calc 11.63, Est GFR (MDRD) Af Amer 11 L, Est GFR (MDRD) Non-Af 9 L, BUN/Creatinine Ratio 9.2 L, Glucose 80, Calcium 6.9 L 03/17/22 04:15: WBC 9.6, RBC 3.71 L, Hgb 8.9 L, Hct 27.9 L, MCV 75.2 L, MCH 24.0 L, MCHC 31.9 L, RDW Std Deviation 67.2 H, RDW Coeff of [place]avo 25.0 H, Plt Count 343, MPV 9.5, Immature Gran % (Auto) 0.600, Neut % (Auto) 81.1 H, Lymph % (Auto) 9.3 L, [place] % (Auto) 8.6, Eos % (Auto) 0.3, Baso % (Auto) 0.1, Absolute Neuts (auto) 7.8 H, Absolute Lymphs (auto) 0.89, Nucleated RBC % 0, Anisocytosis 2+, Microcytosis 2+ 03/17/22 04:15: Sodium 135 L, Potassium 3.6, Chloride 109 H, Carbon Dioxide 18.0 L, Anion Gap 8, BUN 48 H, Creatinine 4.98 H, Estim Creat Clear Calc 13.48, Est GFR (MDRD) Af Amer 13 L, Est GFR (MDRD) Non-Af 10 L, BUN/Creatinine Ratio 9.6 L, Glucose 81, Calcium 6.5 L*, Total Bilirubin 0.70, AST 34, ALT 31, Alkaline Phosp hatase 232 H, Total Protein 5.7 L, Albumin 1.8 L, Globulin 3.9, Albumin/Globulin Ratio 0.5 L Micro: Microbiology 03/16/22 16:00 Mucosa - Nose Respiratory Panel (PCR) - Final 03/16/22 14:20 Urine, Clean Catch Legionella Antigen - Final 03/16/22 14:20 Urine, Clean Catch Streptococcus pneumoniae Antigen (M - Final 03/16/22 11:35 Nasal Secretion SARS-CoV-2 & FLU Antigen (Rapid) - Final Influenzae B SARS-CoV-2 (COVID 19) Radiography Diagnostic Testing: Radiology Impression Abdomen CT 03/16/22 11:59 IMPRESSION: Hepatomegaly. Sludge or gallstones in the gallbladder lumen. Moderate amount of fecal material is seen in the colon. Electronically Signed: Joey Dang MD at 13:44 EDT , Chest X-Ray 03/16/22 14:30 IMPRESSION: Normal x-ray examination of the chest. Electronically Signed: Joey Dang MD at 14:51 EDT , Physical Exam Narrative General: Mild lethargic, looks sick. Awake and oriented x3. HEENT: Atraumatic, PERRLA, EOMI, Normocephalic Oral: No Gingival or Mucosal Lesions/ Ulcerations Neck: Supple, No JVD, Negative Carotid Bruits Lungs: Air entry diminished in bilateral lung bases. Tachypneic. No rales wheezing or crepitations. Cardiovascular: Sinus tachycardia, Normal S1, Normal S2, No murmurs Abdomen: Bowel Sounds Present, Soft, Non Tender, Non-Distended : No renal angle tenderness. No suprapubic tenderness. Extremities: No edema, Capillary Refill Less than 3 Seconds Skin: No rashes, No breakdown Musculoskeletal: No Tenderness to Palpation of Joints or Extremities Neurological: Cranial nerves II-XII grossly intact, DTR 2+/4 and Symmetrical, Neuro grossly intact Psych/Mental Status: Flat affect. Assessment & Plan Assessment/Plan (1) COVID-19: (2) Diabetic ketoacidosis: QUALIFIERS: Diabetes mellitus complication detail: without coma Diabetes mellitus type: other specified (including SELVIN) Qualified Code(s): E13.10 - Other specified diabetes mellitus with ketoacidosis without coma (3) Urinary tract infection: QUALIFIERS: Hematuria presence: without hematuria Urinary tract infection type: acute cystitis Qualified Code(s): N30.00 - Acute cystitis without hematuria (4) Acute kidney injury: (5) Sepsis: QUALIFIERS: Acute renal failure type: unspecified Sepsis acute organ dysfunction status: with acute organ dysfunction Sepsis type: sepsis due to unspecified organism Severe sepsis acute organ dysfunction type: acute renal failure Severe sepsis shock status: without septic shock Qualified Code(s): A41.9 - Sepsis, unspecified organism; R65.20 - Severe sepsis without septic s hock; N17.9 - Acute kidney failure, unspecified PLAN: The patient is a 37 y/o F is admitted with nausea, vomiting, fever, anuria, abdominal pain, but not diarrhea, tachycardic, tachypneic with lab abnormality suggestive of DKA and suspicion of sepsis. Patient is vaccinated and scored with 2 L but not boosted. #1. Suspicion of sepsis suspected UTI with sepsis related organ dysfunction, evidenced by JACKELYN: Rapid COVID antigen positive. COVID-19 PCR negative. Influe nza B positive. UA suggestive of pyuria and bacteria respiratory panel and urinary antigens for pneumonia are negative. Inflammatory markers shows elevated LDH, CRP but normal BNP. D-dimer elevated. The patient is started on Tamiflu, adjusted to creatinine clearance. ID is consulted. Some of the features of organ related dysfunction may be confounded by simultaneous DKA. Discussed with ID and mining captain. Chest x-ray and CT abdomen individually reviewed. Chest x-ray reported normal. Abdominal CT reported sludge or gallstone with hepatomegaly. Moderate amount of fecal matter in colon. #2. DKA with history of Diabetes mellitus type II: Patient has increased anion gap metabolic acidosis. Being managed on the protocol of DKA with IV fluid resuscitation and insulin drip. #3. Acute Complicated Urinary Tract Infection, labs more consistent with Pyelonephritis; however, no stranding on CT: UA upon ED evaluation remarkable, pending UCx, continue IVFs, monitor I/Os, continue IV Rocephin w/ transition as able pending sensitivities and speciation. Bld cx x 2 obtained in the ED. #4. Acute kidney injury may be due to JACKELYN and suspected sepsis: Patient states she did not urinate for last 3 days suggestive of anuria. Admission BUN/Cr 68/7.91, prior baseline creatinine noted to be 0.8-0.9. Patient is getting hydrated. BUN/creatinine improving. Continue to monitor kidney function electrolytes. #5. Electrolyte abnormalities: Hypotonic hyponatremia, hypochloremia with inc reased anion gap metabolic acidosis due to DKA. Improving trends of electrolytes. Serum magnesium and phosphorus level normal. #6. Anxiety and Depression/bipolar disorder: Monitor and adjust the medication as per creatinine clearance #7. Other comorbidities include chronic cigarette smoking, chronic microcytic anemia: Hemoglobin 10.7, MCV 74.2. Iron panel and guaiac test ordered #8. DVT prophylaxis: SCDs, heparin. Total time of the visit including total time spent in counseling or coordination of care, (more than 50% of the total time, spent in obtaining medical information from nurses and other ancillary care providers,explaining to the patient about labs, imaging, diagnosis and management), discussion with senior erp consultant, review of labs and imaging is 40 minutes. Charges/Coding Visit Charges Inpatient E&M: 99469 Subs Hosp L3
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
[2022-03-17 10:01] LABS: Bedside Glucose 73 mg/dL (74-106)
[2022-03-17] MEDS: Pantoprazole Sodium 40 MG Tablet PO (11:17)
[2022-03-17] MEDS: Heparin Injection (Vial) 5,000 UNIT/ML VIAL 5000 UNIT SC ×2 (11:17→21:15)
[2022-03-17] MEDS: lamoTRIgine 25 MG Tablet 50 MG PO (11:17)
[2022-03-17] MEDS: Senna/Docusate Sodium 1 Tablet PO ×2 (11:17→20:59)
[2022-03-17] MEDS: Escitalopram Oxalate 20 MG Tablet PO (11:17)
[2022-03-17] MEDS: OLANZapine 10 MG Tablet 20 MG PO (11:17)
[2022-03-17] MEDS: busPIRone 15 MG TABLET 30 MG PO ×2 (11:18→20:58)
[2022-03-17] MEDS: Tolterodine Tartrate 2 MG CAP.SA PO (11:18)
[2022-03-17] MEDS: Acetaminophen 325 MG Tablet 650 MG PO (11:18)
[2022-03-17] MEDS: Ceftriaxone 1 GM/50 ML BAG IV (11:24)
--- NOTE | 2022-03-17 14:29 | CON.PCM.ID_ITS ---
Assessment & Plan Assessment/Plan (1) COVID-19: PLAN: Covid 19 complicated by JACKELYN and uti. Sx started 03/10. C/o heada jamari, sore throat, loss of smell, body aches, so I think this is true covid infection even with a negative PCR. Ag was (+). On ceftriaxone for uti. JACKELYN improving, making urine. Discussed risks and benefits with her, we agree to start remdesivir for covid treatment. Out of window of benefit for flu treatment. Will follow, thank you. D/w Dr. Pool and Dr. Buckner. (2) Acute kidney injury: (3) Urinary tract infection: QUALIFIERS: Urinary tract infection type: acute cystitis Hematuria presence: without hematuria Qualified Code(s): N30.00 - Acute cystitis without hematuria HPI Consult Data Date of Consult: 03/17/22 HPI Narrative HPI Narrative: JAGDISH OLIVAREZ, is a 37 F who presented 03/16 with one week of not feeling well. Sx started with headache, sore throat, congestion, loss of smell, and body aches. No cough, no sick contacts, overdue for covid booster. Developed intractable n/v, decreased UOP. No dysuria. Came to ED, admitted to icu with IVF and ceftriaxone. Not feeling much better today. Full ROS performed and neg except as noted above. PFSH Medical History Anxiety Bipolar 1 disorder Depression Diabetes Microcytic anemia Migraines Mitral valve prolapse Tobacco use Home Medications buspirone 30 mg PO BID 03/16/22 [History Last Taken 03/16/22] cyclobenzaprine [Flexeril] 7.5 mg PO TID PRN 03/16/22 [History Last Taken Unknown] empagliflozin [Jardiance] 25 mg PO DAILY 03/16/22 [History Last Taken 03/16/22] escitalopram oxalate 20 mg PO DAILY 03/16/22 [History Last Taken 03/16/22] glipizide 2.5 mg PO BID@0900,1700 03/16/22 [History Last Taken 03/16/22] hydroxyzine HCl 50 mg PO TID PRN 03/16/22 [History Last Taken Unknown] lamotrigine 50 mg PO DAILY 03/16/22 [History Last Taken 03/16/22] lisinopril 2.5 mg PO DAILY 03/16/22 [History Last Taken 03/16/22] lubiprostone 8 mcg PO BID 03/16/22 [History Last Taken 03/16/22] naproxen 500 mg PO BID PRN 03/16/22 [History Last Taken Unknown] olanzapine 20 mg PO DAILY 03/16/22 [History Last Taken 03/14/22] omeprazole 40 mg PO DAILY 03/16/22 [History Last Taken 03/16/22] oxybutynin chloride 10 mg PO DAILY 03/16/22 [History Last Taken 03/16/22] prazosin 1 mg PO QHS 03/16/22 [History Last Taken 03/14/22] trazodone 25 mg PO QHS PRN 03/16/22 [History Last Taken Unknown] Allergy/AdvReac Type Severity Reaction Status Date / Time codeine AdvReac Other Verified 03/16/22 11:07 sulfamethoxazole AdvReac Nausea/Vom/ Verified 03/16/22 11:07 [From Bactrim] Diarrhea tramadol AdvReac Other Verified 03/16/22 11:07 trimethoprim [From Bactrim] AdvReac Nausea/Vom/ Verified 03/16/22 11:07 Diarrhea Family History (Updated 03/16/22 @ 14:[address] Shante Madrid MD) Mother Diabetes Family History other Surgical History (Updated 03/16/22 @ 14:[address] Shante Madrid MD) H/O: hysterectomy History of repair of congenital cleft palate Hx of section Tubal ligation status Social History (Updated 03/16/22 @ 14:[address] Shante Madrid MD) household members: significant other Smoking Status: Current every day smoker tobacco type: cigarettes Smoking packs per day: 0.75 Smoking cigarettes per day: 15.0 Years smoked: 19 Smoking pack-yea rs: 14.25 alcohol intake: never substance use type: does not use Physical Exam Const alert, oriented x3 and no apparent distress General Appearance: cooperative Exam Limitations: no limitations HEENT normocephalic and head/scalp atraumatic Eyes PERRL and EOMs intact bilaterally Neck supple and No nodes Resp normal air movement and clear to auscultation bilaterally Cardio regular rate and regular rhythm GI soft to palpation, non-tender and non-distended Extremity no clubbing, cyanosis or edema Skin no rashes or lesions noted Neuro CN's II-XII intact bilaterally Medical Records Data Medical Nutrition Assessment Dietitian: Malnutrition Criteria Met Start: 03/17/22 07:51 Freq: Status: Active Protocol: Document 03/17/22 09:37 SLA (Rec: 03/17/22 09:38 [facility] [id number]) Nutrition Malnutrition Evidence of Malnutrition Exists Yes Malnutrition (severe): Acute Illness/Injury Evidenced By Suboptimal Energy Intake ( Severe),Weight Loss (Severe) Clinical Problem Acute Disease or Injury Related Malnutrition Etiology related to acute illness ( COVID) and 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 Status Active Problem Recommendation Dietitian Recommendations/Changes Will change diet to Consistent CHO - easy to chew d/t edentulous Will provide 8 oz chocolate glucerna shake w/ meals for increased nutrition if consumed Provide additional diet education at time of follow up prn. Lab / Micro Data Result Diagrams: 03/17/22 04:15 03/17/22 04:15 Labs: Laboratory Results - last 24 hr 03/16/22 14:20: Urine Opiates Screen NEGATIVE, Urine Methadone Screen NEGATIVE, Ur Barbiturates Screen NEGATIVE, Ur Phencyclidine Scrn NEGATIVE, Ur Amphetamines Screen NEGATIVE, MDMA (Ecstasy) Screen NEGATIVE, U Benzodiazepines Scrn NEGATIVE, Urine Cocaine Screen NEGATIVE, U Cannabinoids Screen POSITIVE H 03/16/22 14:20: Ur Random Sodium 47, Urine Creatinine 91.20 03/16/22 15:35: D-Dimer Quant (PE/DVT) 2.44 H* 03/16/22 15:35: Sodium 127 L, Potassium 3.6, Chloride 97 L, Carbon Dioxide 18.0 L, Anion Gap 12, BUN 64 H, Creatinine 6.94 H, Estim Creat Clear Calc 9.67, Est GFR (MDRD) Af Amer 9 L, Est GFR (MDRD) Non-Af 7 L, BUN/Creatinine Ratio 9.2 L, Glucose 82, Calcium 7.2 L, Phosphorus 3.9, Magnesium 2.1, Ferritin 105, Lactate Dehydrogenase 247 H, Troponin I High Sens < 3 L, C-React Prot Ext Range 232.00 H 03/16/22 15:35: B-Natriuretic Peptide 22.2 03/16/22 15:35: Procalcitonin 0.89 H 03/16/22 15:52: POC Glucose 75 03/16/22 16:00: COVID-19 (MYLES) Not Detected 03/16/22 17:06: POC Glucose 73 L 03/16/22 18:08: POC Glucose 86 03/16/22 18:57: POC Glucose 72 L 03/16/22 19:33: POC Glucose 75 03/16/22 19:38: Sodium 130 L, Potassium 3.6, Chloride 100, Carbon Dioxide 20.0 L , Anion Gap 10, BUN 59 H, Creatinine 6.57 H, Estim Creat Clear Calc 10.22, Est GFR (MDRD) Af Amer 9 L, Est GFR (MDRD) Non-Af 8 L, BUN/Creatinine Ratio 9.0 L, Glucose 70 L, Calcium 6.9 L 03/16/22 23:49: POC Glucose 72 L 03/16/22 23:50: Sodium Cancelled, Potassium Cancelled, Chloride Cancelled, Carbon Dioxide Cancelled, Anion Gap Cancelled, BUN Cancelled, Creatinine Cancelled, Estim Creat Clear Calc Cancelled, Est GFR (MDRD) Af Amer Cancelled, Est GFR (MDRD) Non-Af Cancelled, BUN/Creatinine Ratio Cancelled, Glucose Cancelled, Calcium Cancelled 03/17/22 00:25: Sodium 134 L, Potassium 3.6, Chloride 105, Carbon Dioxide 19.0 L , Anion Gap 10, BUN 53 H, Creatinine 5.77 H, Estim Creat Clear Calc 11.63, Est GFR (MDRD) Af Amer 11 L, Est GFR (MDRD) Non-Af 9 L, BUN/Creatinine Ratio 9.2 L, Glucose 80, Calcium 6.9 L 03/17/22 04:15: WBC 9.6, RBC 3.71 L, Hgb 8.9 L, Hct 27.9 L, MCV 75.2 L, MCH 24.0 L, MCHC 31.9 L, RDW Std Deviation 67.2 H, RDW Coeff of Tavo 25.0 H, Plt Count 343, MPV 9.5, Immature Gran % (Auto) 0.600, Neut % (Auto) 81.1 H, Lymph % (Auto) 9.3 L, [place] % (Auto) 8.6, Eos % (Auto) 0.3, Baso % (Auto) 0.1, Absolute Neuts (auto) 7.8 H, Absolute Lymphs (auto) 0.89, Nucleated RBC % 0, Anisocytosis 2+, Microcytosis 2+ 03/17/22 04:15: Sodium 135 L, Potassium 3.6, Chloride 109 H, Carbon Dioxide 18.0 L, Anion Gap 8, BUN 48 H, Creatinine 4.98 H, Estim Creat Clear Calc 13.48, Est GFR (MDRD) Af Amer 13 L, Est GFR (MDRD) Non-Af 10 L, BUN/Creatinine Ratio 9.6 L, Glucose 81, Calcium 6.5 L*, Total Bilirubin 0.70, AST 34, ALT 31, Alkaline Phosphatase 232 H, Total Protein 5.7 L, Albumin 1.8 L, Globulin 3.9, Albumin/Globulin Ratio 0.5 L 03/17/22 09:54: POC Glucose 73 L Micro: Microbiology 03/16/22 14:20 Urine, Clean Catch Urine Culture - Preliminary Presumptive E. coli 03/16/22 16:00 Mucosa - Nose Respiratory Panel (PCR) - Final 03/16/22 14:20 Urine, Clean Catch Legionella Antigen - Final 03/16/22 14:20 Urine, Clean Catch Streptococcus pneumoniae Antigen (M - Final 03/16/22 11:35 Nasal Secretion SARS-CoV-2 & FLU Antigen (Rapid) - Final Influenzae B SARS-CoV-2 (COVID 19) Radiology Impression Chest X-Ray 03/16/22 14:30 IMPRESSION: Normal x-ray examination of the chest. Electronically Signed: Joey Dang MD at 14:51 EDT ,
[2022-03-17 15:01] LABS: Bedside Glucose 147 mg/dL (74-106)
--- NOTE | 2022-03-17 15:22 | CASEMGMT ---
SW did received a referral for patient for local Psychiatrists, Healthcare Power of Clinical Consultant, and social issues. SW attempted to see patient however, RN was providing care. SW will try again as able. Per physician patient will be in the hospital through the weekend. Shelby GALLO
--- NOTE | 2022-03-17 15:28 | CASEMGMT ---
WILMA called Gertrudis at [facility] and asked if she has heard anything from [facility]. Gertrudis has not so she will call and check on referral. WILMA updated RN and transmitter engineer in charge. Shelby GALLO
[2022-03-17] MEDS: Doxazosin 1 MG Tablet PO (20:59)
[2022-03-17] MEDS: traZODone 50 MG Tablet 25 MG PO (21:04)
[2022-03-17] MEDS: Ondansetron 4 MG/2 ML Vial IV (22:27)
[2022-03-18] VITALS (7 sets, daily range): BP systolic 97–112; BP diastolic 56–77; PULSE 94–116; RESP 16–18; TEMP 36.7–38.3; O2SAT 94–100
[2022-03-18] MEDS: 0.9% Normal Saline 1,000 ML 200 ML IV ×2 (01:27→06:45)
[2022-03-18 03:26] LABS: Bedside Glucose 121 mg/dL (74-106)
[2022-03-18] MEDS: Acetaminophen 325 MG Tablet 650 MG PO ×2 (03:41→16:27)
[2022-03-18 03:45] LABS: Hematocrit 28.6 % (37-47); Hemoglobin 9.2 g/dL (12.0-15.0); Mean Corp Hgb Conc 32.2 g/dL (32-36); Mean Corpuscular Hgb 24.1 pg (27.0-32.0); Mean Corpuscular Volume 74.9 fL (81-99); Mean Platelet Vol. 9.6 fl (6.2-12.0); POSITIVE MORPHOLOGY YES; Platelet Count 412 K/mm3 (150-450); RBC Distribution Width CV 26.3 % (11.6-14.6); RBC Distribution Width SD 69.8 fl (35.1-43.9); Red Blood Count 3.82 M/mm3 (4.2-5.4); White Blood Count 8.5 K/mm3 (4.4-11.0)
[2022-03-18 04:23] LABS: Scan Indicated on CBC? Y/N YES- FLAGS NOTED
[2022-03-18 04:30] LABS: ALB/GLOB Ratio 0.5 RATIO (0.9-2.4); AST(SGOT) 155 U/L (15-37); Alanine Aminotransfer ALT/SGPT 143 U/L (13-56); Albumin, Serum 1.9 g/dL (3.2-5.0); Alkaline Phosphatase 620 U/L (45-117); Anion Gap 6 (5-15); BUN 35 mg/dL (7-18); BUN/Creat Ratio 12.4 RATIO (10-20); Calcium,Total 7.6 mg/dL (8.5-10.1); Chloride 112 mmol/L (98-107); Creatinine, Serum 2.83 mg/dL (0.55-1.02); EST Glomerular Filtration Rate 20 mL/min (>60); Est Glom Filt Rate - Afr Amer 24 mL/min (>60); Estimated Creatinine Clearance 24.15 ml/min; Globulin 4.1 g/dL (2.2-4.2); Glucose 133 mg/dL (74-106); Potassium 4.8 mmol/L (3.5-5.1); Sodium Level 139 mmol/L (136-145)
[2022-03-18 04:54] LABS: Differential Comment SCANNED
--- NOTE | 2022-03-18 06:13 | PCM.PN.INT ---
Assessment & Plan Assessment/Plan (1) Sepsis: QUALIFIERS: Acute renal failure type: unspecified Sepsis acute organ dysfunction status: with acute organ dysfunction Sepsis type: sepsis due to unspecified organism Severe sepsis acute organ dysfunction type: acute renal failure Severe sepsis shock status: without septic shock Qualified Code(s): A41.9 - Sepsis, unspecified organism; R65.20 - Severe sepsis without septic shock; N17.9 - Acute kidney failure, unspecified (2) Acute kidney injury: PLAN: RECOMMENDATIONS: 1. Continue management and precautions for suspected COVID per ID recommendations. 2. Continue antimicrobials, pending finalized culture results. 3. Continue nicotine replacement therapy. 4. Encourage incentive spirometer use and mobilize patient as tolerated. 5. Check lipase and GGT. Consider liver ultrasound. 6. Continue to monitor liver function daily. Will need to discontinue remdesivir if liver function continues to worsen. IMPRESSIONS: 1. Sepsis The patient presented to the hospital with sepsis due to suspected urinary tract source of infection with acute sepsis related organ dysfunction as evidenced by acute kidney injury. The patient was subsequently volume resuscitated and placed on empiric antimicrobials. Cultures are currently pending. Although the patient initially tested positive for influenza and COVID on her rapid antigen testing, subsequent PCR was negative. Chest x-ray was unremarkable and the patient is maintaining appropriate oxygen saturations on room air. The patient was subsequently evaluated by infectious diseases, who felt that the patient did have a true COVID infection, despite negative PCR. She was ordered to receive remdesivir. 2. Acute kidney injury Improving. Likely prerenal in etiology and related to #1 and generalized intravascular volume depletion in the setting of protracted nausea and vomiting. Anticipate further improvement in creatinine and urine output with ongoing volume resuscitation. Continue to monitor urine output. No current indication for renal replacement therapy. 3. Chronic tobacco dependency Tobacco cessation counseling was provided. Nicotine replacement therapy will be utilized while the patient is admitted to the hospital. 4. Chronic anemia/anxiety/depression/diabetes mellitus Complicates care, management, recovery and prognosis. Continue Accu-Cheks and sliding scale insulin coverage. This note was generated with [employer] software. It may contain incorrect words, spelling, and punctuation that were not noted in checking the note before signing. Subjective Subjective The patient was seen and examined at the bedside this morning. Events from the last 24 hours have been reviewed. The patient is currently afebrile, hemodynamically stable and maintaining appropriate oxygen saturations on room air. Following evaluation by infectious diseases yesterday, the patient was left in COVID precautions over concerns that she has a true infection despite negative PCR. She was also started on remdesivir. The patient is currently documented to be overall net +4.3 L for the hospitalization. Creatinine has improved to 2.83. AST and ALT are increased this morning as well as alkaline phosphatase. Although the patient had a repeat D-dimer yesterday of 6, lower extremity Doppler studies were negative for DVT. Wells PE score is low at 1.5 points, making pulmonary embolism unlikely. Objective Data Objective Data The patient's most recent lab work, culture data and imaging studies have all been personally reviewed. Rapid antigen testing was positive for influenza and COVID. Respiratory viral panel was negative. COVID PCR was negative. Preliminary urine culture is positive for E. coli. Blood cultures are pending. Vital Signs: Vital Signs Temp Pulse Resp BP Pulse Ox 99.1 F 107 H 18 110/77 99 03/18/22 03:00 03/18/22 03:00 03/18/22 03:00 03/18/22 03:00 03/18/22 03:00 Oxygen Delivery Method Room Air Weight: 56.2 kg Body Mass Index (BMI) 18.5 Intake & Output: Intake and Output for Last 24 Hours 03/16/22 03/17/22 03/18/22 23:59 23:59 23:59 Intake Total 6347.93 / 6347.93 4993.33 / 4993.33 1000 / 1000 Output Total 7050 / 7050 1000 / 1000 Balance 6347.93 / 6347.93 -2056.67 / -2056.67 0 / 0 Medical Nutrition Assessment Dietitian: Malnutrition Criteria Met Start: 03/17/22 07:51 Freq: Status: Active Protocol: Document 03/17/22 09:37 KRISTINE (Rec: 03/17/22 09:38 KRISTINE [id number]) Nutrition Malnutrition Evidence of Malnutrition Exists Yes Malnutrition (severe): Acute Illness/Injury Evidenced By Suboptimal Energy Intake ( Severe),Weight Loss (Severe) Clinical Problem Acute Disease or Injury Related Malnutrition Etiology related to acute illness ( COVID) and 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 Status Active Problem Recommendation Dietitian Recommendations/Changes Will change diet to Consistent CHO - easy to chew d/t edentulous Will provide 8 oz chocolate glucerna shake w/ meals for increased nutrition if consumed Provide additional diet education at time of follow up prn. Lab / Micro Data Attestation: I reviewed the patient's lab results. Result Diagrams: 03/18/22 03:15 03/18/22 03:15 Labs: Laboratory Results - last 24 hr 03/17/22 09:54: POC Glucose 73 L 03/17/22 14:51: POC Glucose 147 H 03/17/22 21:11: POC Glucose 121 H 03/18/22 03:15: WBC 8.5, RBC 3.82 L, Hgb 9.2 L, Hct 28.6 L, MCV 74.9 L, MCH 24.1 L, MCHC 32.2, RDW Std Deviation 69.8 H, RDW Coeff of Tavo 26.3 H, Plt Count 412, MPV 9.6, Differential Comment SCANNED 03/18/22 03:15: Sodium 139, Potassium 4.8, Chloride 112 H, Carbon Dioxide 21.0, Anion Gap 6, BUN 35 H, Creatinine 2.83 H, Estim Creat Clear Calc 24.15, Est GFR (MDRD) Af Amer 24 L, Est GFR (MDRD) Non-Af 20 L, BUN/Creatinine Ratio 12.4, Glucose 133 H, Calcium 7.6 L, Total Bilirubin 0.40, AST 155 H, ALT 143 H, Alkaline Phosphatase 620 H, Total Protein 6.0 L, Albumin 1.9 L, Globulin 4.1, Albumin/Globulin Ratio 0.5 L 03/18/22 03:15: D-Dimer Quant (PE/DVT) 6.20 H* Micro: Microbiology 03/16/22 14:20 Urine, Clean Catch Urine Culture - Preliminary Presumptive E. coli 03/16/22 16:00 Mucosa - Nose Respiratory Panel (PCR) - Final 03/16/22 14:20 Urine, Clean Catch Legionella Antigen - Final 03/16/22 14:20 Urine, Clean Catch Streptococcus pneumoniae Antigen (M - Final 03/16/22 11:35 Nasal Secretion SARS-CoV-2 & FLU Antigen (Rapid) - Final Influenzae B SARS-CoV-2 (COVID 19) Radiography Diagnostic Testing: Radiology Impression Venous Doppler Study 03/16/22 17:40 Interpretation Summary No evidence for acute deep venous thrombosis bilateral lower extremities with patent and compressible bilateral great saphenous veins. Abbreviated COVID-19 protocol utilized Ordering Physician: Shante Madrid Performed By: Marlon Nieves Physical Exam Const alert and no apparent distress General Appearance: cooperative HEENT normocephalic and head/scalp atraumatic Eyes PERRL, EOMs intact bilaterally and conjunctivae normal Neck supple General: trachea midline Chest inspection of chest normal Resp normal respiratory effort and no use of accessory muscles Effort and Inspection: able to speak in complete sentences Auscultation: Negative for rales, rhonchi or wheezes Cardio S1 normal heart sound and S2 normal heart sound Rate: tachycardic GI normal to inspection, nondistended, normoactive bowel sounds Extremity no clubbing, cyanosis or edema Skin no rashes or lesions noted Neuro CN's II-XII intact bilaterally, moves all extremities and no focal motor deficits Psych Mood & Affect: flat affect Charges/Coding Visit Charges Inpatient E&M: 63051 Subs Hosp L2
[2022-03-18 07:09] LABS: GGTP 172 U/L (5-55); Lipase 40 U/L (73-393)
--- NOTE | 2022-03-18 08:01 | US_ITS ---
STUDY: ABDOMINAL ULTRASOUND - RIGHT UPPER QUADRANT REASON FOR VISIT: Female, 37 years old elevated LFTs TECHNIQUE: Ultrasound evaluation of the right upper quadrant was performed with real-time and static miles-scale imaging. TECHNICAL QUALITY: Adequate. COMPARISON: CT abdomen from 03/16/2022 FINDINGS: Liver: The liver measures 16.5 cm. There is increased echogenicity consistent with fatty infiltration. The bile ducts are within normal limits. There is hepatic color flow. The direction of portal flow is hepatopetal. Credit Risk Analyst notes a 3 cm mass along the right falciform ligament which is shown on CT to be of hypoattenuation. I suspect this likely represents focal fatty sparing Gallbladder: Normal distended gallbladder. The gallbladder wall measures 2.8 mm. There is a negative sonographic Luna''s sign. There is no pericholecystic fluid. There is biliary sludge dependent within the gallbladder. Common Bile Duct (C.B.D.): The common bile duct measures 3.8 mm. Pancreas: Normal size of the head, body and tail of the pancreas. There is increased echogenicity of the pancreas. There is no demonstrated pancreatic mass or cyst. Right Kidney: Normal size of the right kidney. The right kidney measures 12.0 x 5.2 x 4.9 cm. Normal renal cortex. The right cortex measures 1.2 cm. There is no demonstrated renal mass or cyst. There is no right hydronephrosis. US/Abdomen Limited IMPRESSION: Fatty liver with likely focal fatty sparing along the falciform ligament Echogenic sludge within the gallbladder but no sonographic evidence of acute gallbladder disease Nonspecific echogenic pancreas Electronically Signed: Nicholas Guerrero MD at 11:58 EDT ,
--- NOTE | 2022-03-18 08:03 | PCM.PN.HOSP ---
Subjective Subjective Follow-up for COVID infection and abdominal pain. Patient still has abdominal pain complaint for 7 days constant not progressive but not getting better. Nausea and vomiting has improved. Objective Data Objective Data Vital Signs: Vital Signs Temp Pulse Resp BP Pulse Ox 99.1 F 107 H 18 110/77 99 03/18/22 03:00 03/18/22 03:00 03/18/22 03:00 03/18/22 03:00 03/18/22 03:00 Oxygen Delivery Method Room Air Weight: 123 lb 14.397 oz Body Mass Index (BMI) 18.5 Intake & Output: Intake and Output for Last 24 Hours 03/16/22 03/17/22 03/18/22 23:59 23:59 23:59 Intake Total 6347.93 / 6347.93 4993.33 / 4993.33 1999 Output Total 7050 / 7050 1999 Balance 6347.93 / 6347.93 -2056.67 / -2056.67 0 / 0 Medical Nutrition Assessment Dietitian: Malnutrition Criteria Met Start: 03/17/22 07:51 Freq: Status: Active Protocol: Document 03/17/22 09:37 SLA (Rec: 03/17/22 09:38 SLA [id number]) Nutrition Malnutrition Evidence of Malnutrition Exists Yes Malnutrition (severe): Acute Illness/Injury Evidenced By Suboptimal Energy Intake ( Severe),Weight Loss (Severe) Clinical Problem Acute Disease or Injury Related Malnutrition Etiology related to acute illness ( COVID) 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 Status Active Problem Recommendation Dietitian Recommendations/Changes Will change diet to Consistent CHO - easy to chew d/t edentulous Will provide 8 oz chocolate glucerna shake w/ meals for increased nutrition if consumed Provide additional diet education at time of follow up prn. Lab / Micro Data Result Diagrams: 03/18/22 03:15 03/18/22 03:15 Labs: Laboratory Results - last 24 hr 03/17/22 09:54: POC Glucose 73 L 03/17/22 14:51: POC Glucose 147 H 03/17/22 21:11: POC Glucose 121 H 03/18/22 03:15: WBC 8.5, RBC 3.82 L, Hgb 9.2 L, Hct 28.6 L, MCV 74.9 L, MCH 24.1 L, MCHC 32.2, RDW Std Deviation 69.8 H, RDW Coeff of Tavo 26.3 H, Plt Count 412, MPV 9.6, Differential Comment SCANNED 03/18/22 03:15: Sodium 139, Potassium 4.8, Chloride 112 H, Carbon Dioxide 21.0, Anion Gap 6, BUN 35 H, Creatinine 2.83 H, Estim Creat Clear Calc 24.15, Est GFR (MDRD) Af Amer 24 L, Est GFR (MDRD) Non-Af 20 L, BUN/Creatinine Ratio 12.4, Glucose 133 H, Calcium 7.6 L, Total Bilirubin 0.40, AST 155 H, ALT 143 H, Alkaline Phosphatase 620 H, Total Protein 6.0 L, Albumin 1.9 L, Globulin 4.1, Albumin/Globulin Ratio 0.5 L 03/18/22 03:15: D-Dimer Quant (PE/DVT) 6.20 H* 03/18/22 03:15: GGT 172 H, Lipase 40 L Micro: Microbiology 03/16/22 14:20 Urine, Clean Catch Urine Culture - Preliminary Presumptive E. coli 03/16/22 16:00 Mucosa - Nose Respiratory Panel (PCR) - Final 03/16/22 14:20 Urine, Clean Catch Legionella Antigen - Final 03/16/22 14:20 Urine, Clean Catch Streptococcus pneumoniae Antigen (M - Final 03/16/22 11:35 Nasal Secretion SARS-CoV-2 & FLU Antigen (Rapid) - Final Influenzae B SARS-CoV-2 (COVID 19) Radiography Diagnostic Testing: Radiology Impression Venous Doppler Study 03/16/22 17:40 Interpretation Summary No evidence for acute deep venous thrombosis bilateral lower extremities with patent and compressible bilateral great saphenous veins. Abbreviated COVID-19 protocol utilized Ordering Physician: Shante Madrid Performed By: Marlon Nieves Physical Exam Narrative General: Awake, awake and oriented x3. HEENT: Atraumatic, PERRLA, EOMI, Normocephalic Oral: No Gingival or Mucosal Lesions/ Ulcerations Neck: Supple, No JVD, Negative Carotid Bruits Lungs: Air entry diminished in bilateral lung bases. No hypoxia or tachypnea no rales wheezing or crepitations. Cardiovascular: Sinus rhythm at 90s normal S1, Normal S2, No murmurs Abdomen: Tenderness present over right upper quadrant predominantly but all over. Bowel Sounds Present, Soft, Non-Distended : No renal angle tenderness. No suprapubic tenderness. Extremities: No edema, Capillary Refill Less than 3 Seconds Skin: No rashes, No breakdown Musculoskeletal: No Tenderness to Palpation of Joints or Extremities Neurological: Cranial nerves II-XII grossly intact, DTR 2+/4 and Symmetrical, Neuro grossly intact Psych/Mental Status: Flat affect. Assessment & Plan Assessment/Plan (1) COVID-19: (2) Diabetic ketoacidosis: QUALIFIERS: Diabetes mellitus complication detail: without coma Diabetes mellitus type: other specified (including SELVIN) Qualified Code(s): E13.10 - Other specified diabetes mellitus with ketoacidosis without coma (3) Urinary tract infection: QUALIFIERS: Hematuria presence: without hematuria Urinary tract infection type: acute cystitis Qualified Code(s): N30.00 - Acute cystitis without hematuria (4) Acute kidney injury: (5) Sepsis: QUALIFIERS: Acute renal failure type: unspecified Sepsis acute organ dysfunction status: with acute organ dysfunction Sepsis type: sepsis due to unspecified organism Severe sepsis acute organ dysfunction type: acute renal failure Severe sepsis shock status: without septic shock Qualified Code(s): A41.9 - Sepsis, unspecified organism; R65.20 - Severe sepsis without septic shock; N17.9 - Acute kidney failure, unspecified PLAN: The patient is a 37 y/o F is admitted with nausea, vomiting, fever, anuria, abdominal pain, but not diarrhea, tachycardic, tachypneic with lab abnormality suggestive of DKA and suspicion of sepsis. Patient is vaccinated and scored with 2 L but not boosted. #1. Suspicion of sepsis suspected UTI with sepsis related organ dysfunction, evidenced by JACKELYN: Rapid COVID antigen positive. COVID-19 PCR negative. Influenza B positive. UA suggestive of pyuria and bacteria respiratory panel and urinary antigens for pneumonia are negative. Inflammatory markers shows elevated LDH, CRP but normal BNP. D-dimer elevated. The patient is started on Tamiflu, adjusted to creatinine clearance. ID is consulted. Some of the features of organ related dysfunction may be confounded by simultaneous DKA. Discussed with ID and vendor representatives. Chest x-ray and CT abdomen individually reviewed. Chest x-ray reported normal. Abdominal CT reported sludge or gallstone with hepatomegaly. Moderate amount of fecal matter in colon. 03/18: Patient was started on remdesivir as ID felt true COVID infection. Subsequently, transaminases elevated about 5 times yesterday unclear either from remdesivir or acute cholecystitis. ALT and AST, alkaline phosphatase elevated. GGT 172. Total bili normal. Discussed with ID and remdesivir discontinued. Right upper quadrant sonogram is ordered further management plan as per sonogram. Follow liver test. Patient on a stool softener for feces in colon. Patient is afebrile. Sinus tachycardia resolved. Overall sepsis improving #2. DKA with history of Diabetes mellitus type II: Patient has increased anion gap metabolic acidosis. Being managed on the protocol of DKA with IV fluid resuscitation and insulin drip. Venous duplex of lower extremity negative for acute DVT. 03/18 DKA resolved. #3. Acute Complicated Urinary Tract Infection, labs more consistent with Pyelonephritis; however, no stranding on CT: UA upon ED evaluation remarkable, pending UCx, continue IVFs, monitor I/Os, continue IV Rocephin transition as able pending sensitivities and speciation. Bld cx x 2 are negative for 48 hours 03/18: Urine culture growing E. coli more than 100,000 coli, ESBL negative. Continue IV ceftriaxone. #4. Acute kidney injury may be due to JACKELYN and suspected sepsis: Patient states she did not urinate for last 3 days suggestive of anuria. Admission BUN/Cr 68/7.91, prior baseline creatinine noted to be 0.8-0.9. Patient is getting hydrated. BUN/creatinine improving. Continue to monitor kidney function electrolytes. 03/18: Continued improvement of creatinine. Patient still about 5 L fluid net positive. Total urine output 7 L in last 24-hour #5. Electrolyte abnormalities: Hypotonic hyponatremia, hypochloremia with increased anion gap metabolic acidosis due to DKA. Improving trends of electrolytes. Serum magnesium and phosphorus level normal. #6. Anxiety and Depression/bipolar disorder: Monitor and adjust the medication as per creatinine clearance #7. Other comorbidities include chronic cigarette smoking, chronic microcytic anemia: Hemoglobin 10.7, MCV 74.2. Iron panel and guaiac test ordered #8. DVT prophylaxis: SCDs, heparin. Total time of the visit including total time spent in counseling or coordination of care, (more than 50% of the total time, spent in obtaining medical information from nurses and other ancillary care providers,explaining to the patient about labs, imaging, diagnosis and management), discussion with organizational research consultant, review of labs and imaging is 40 minutes. Charges/Coding Visit Charges Inpatient E&M: 29502 Subs Hosp L3
[2022-03-18] MEDS: Heparin Injection (Vial) 5,000 UNIT/ML VIAL 5000 UNIT SC ×2 (08:13→22:18)
[2022-03-18] MEDS: lamoTRIgine 25 MG Tablet 50 MG PO (08:15)
[2022-03-18] MEDS: busPIRone 15 MG TABLET 30 MG PO ×2 (08:15→22:17)
[2022-03-18] MEDS: Pantoprazole Sodium 40 MG Tablet PO ×2 (08:16)
[2022-03-18] MEDS: Tolterodine Tartrate 2 MG CAP.SA PO (08:16)
[2022-03-18] MEDS: Escitalopram Oxalate 20 MG Tablet PO (08:16)
[2022-03-18] MEDS: Ceftriaxone 1 GM/50 ML BAG IV (08:18)
[2022-03-18] MEDS: OLANZapine 10 MG Tablet 20 MG PO (10:55)
[2022-03-18] MEDS: Senna/Docusate Sodium 1 Tablet PO (10:55)
[2022-03-18 11:05] LABS: Bedside Glucose 90 mg/dL (74-106)
--- NOTE | 2022-03-18 14:01 | NURSING ---
transferred per chair with belongings to room 120
[2022-03-18] MEDS: Polyethylene Glycol 3350 17 GM PACKET PO (16:09)
[2022-03-18] MEDS: Insulin Lispro 100 UNIT/ML INSULN.PEN SC (16:12)
[2022-03-18 16:35] LABS: Bedside Glucose 187 mg/dL (74-106)
[2022-03-18] MEDS: Ondansetron 4 MG/2 ML Vial IV ×2 (16:59→22:15)
[2022-03-18] MEDS: Doxazosin 1 MG Tablet PO (22:17)
[2022-03-18] MEDS: Senna/Docusate Sodium 1 Tablet 2 TABLET PO (22:17)
[2022-03-18] MEDS: 0.9% Saline Lock 10 ML Syringe IV (22:18)
[2022-03-18 22:40] LABS: Bedside Glucose 122 mg/dL (74-106)
[2022-03-19] VITALS (11 sets, daily range): BP systolic 86–108; BP diastolic 47–66; PULSE 86–108; RESP 16–18; TEMP 36.5–38.3; O2SAT 95–99
[2022-03-19] MEDS: 0.9% Normal Saline 1,000 ML 500 ML IV (04:14)
--- NOTE | 2022-03-19 06:55 | PCM.PN.INT ---
Assessment & Plan Assessment/Plan (1) Sepsis: QUALIFIERS: Sepsis type: sepsis due to unspecified organism Sepsis acute organ dysfunction status: with acute organ dysfunction Severe sepsis acute organ dysfunction type: acute renal failure Acute renal failure type: unspecified Severe sepsis shock status: without septic shock Qualified Code(s): A41.9 - Sepsis, unspecified organism; R65.20 - Severe sepsis without septic shock; N17.9 - Acute kidney failure, unspecified (2) Acute kidney injury: PLAN: RECOMMENDATIONS: 1. Continue management and precautions for suspected COVID per ID recommendations. 2. Continue antimicrobials to complete 7 days of therapy for pansensitive E. coli UTI. 3. Continue nicotine replacement therapy. 4. Encourage incentive spirometer use and mobilize patient as tolerated. 5. Await follow-up morning lab work. IMPRESSIONS: 1. Sepsis The patient presented to the hospital with sepsis due to E. coli UTI with acute sepsis related organ dysfunction as evidenced by acute kidney injury. The patient was subsequently volume resuscitated and placed on empiric antimicrobials. Although the patient initially tested positive for influenza and COVID on her rapid antigen testing, subsequent PCR was negative. Chest x-ray was unremarkable and the patient has been maintaining appropriate oxygen saturations on room air. Following evaluation by infectious diseases, the patient was placed on remdesivir over concerns that she had a true COVID infection. However, she developed elevated transaminase levels and ultimately the remdesivir had to be discontinued. 2. Acute kidney injury Improving. Likely prerenal in etiology and related to #1 and generalized intravascular volume depletion in the setting of protracted nausea and vomiting. Anticipate further improvement in creatinine and urine output with ongoing volume resuscitation. Continue to monitor urine output. No current indication for renal replacement therapy. 3. Acute liver injury Unclear precipitating etiology. Right upper quadrant ultrasound did not reveal acute disease. Her remdesivir has been discontinued in light of her elevated transaminases. Follow-up morning lab work is still pending. 4. Chronic tobacco dependency Tobacco cessation counseling was provided. Nicotine replacement therapy will be utilized while the patient is admitted to the hospital. 5. Chronic anemia/anxiety/depression/diabetes mellitus Complicates care, management, recovery and prognosis. Continue Accu-Cheks and sliding scale insulin coverage. This note was generated with [employer]ation software. It may contain incorrect words, spelling, and punctuation that were not noted in checking the note before signing. Subjective Subjective The patient was seen and examined at the bedside this morning. Events from the last 24 hours have been reviewed. The patient is currently afebrile, hemodynamically stable and maintaining appropriate oxygen saturations on room air. Morning labs have yet to be completed. The patient is documented to be overall net +5.6 L for the hospitalization. In light of the patient's liver abnormalities noted on her lab work yesterday, her remdesivir was discontinued. Objective Data Objective Data The patient's most recent lab work, culture data and imaging studies have all been personally reviewed. Rapid antigen testing was positive for influenza and COVID. Respiratory viral panel was negative. COVID PCR was negative. Urine culture was positive for pansensitive E. coli. Blood cultures have not demonstrated any growth to date. Lower extremity Doppler studies were negative. Abdominal ultrasound revealed fatty infiltration of the liver with echogenic sludge within the gallbladder but no evidence of acute gallbladder disease. Vital Signs: Vital Signs Temp Pulse Resp BP Pulse Ox 98.6 F 86 18 108/66 98 03/19/22 06:47 03/19/22 06:47 03/19/22 06:47 03/19/22 06:47 03/19/22 06:47 Oxygen Delivery Method Room Air Weight: 56.2 kg Body Mass Index (BMI) 18.5 Intake & Output: Intake and Output for Last 24 Hours 03/17/22 03/18/22 03/19/22 23:59 23:59 23:59 Intake Total 4993.33 / 4993.33 3006.67 / 3006.67 1000 / 1000 Output Total 7050 / 7050 2700 / 2700 Balance -2056.67 / -2056.67 306.67 / 306.67 1000 / 1000 Medical Nutrition Assessment Dietitian: Malnutrition Criteria Met Start: 03/17/22 07:51 Freq: Status: Active Protocol: Document 03/17/22 09:37 KRISTINE (Rec: 03/17/22 09:38 KRISTINE [id number]) Nutrition Malnutrition Evidence of Malnutrition Exists Yes Malnutrition (severe): Acute Illness/Injury Evidenced By Suboptimal Energy Intake ( Severe),Weight Loss (Severe) Clinical Problem Acute Disease or Injury Related Malnutrition Etiology related to 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 Status Active Problem Recommendation Dietitian Recommendations/Changes Will change diet to Consistent CHO - easy to chew d/t edentulous Will provide 8 oz chocolate glucerna shake w/ meals for increased nutrition if consumed Provide additional diet education at time of follow up prn. Lab / Micro Data Attestation: I reviewed the patient's lab results. Result Diagrams: 03/18/22 03:15 03/18/22 03:15 Labs: Laboratory Results - last 24 hr 03/18/22 03:15: GGT 172 H, Lipase 40 L 03/18/22 10:59: POC Glucose 90 03/18/22 16:01: POC Glucose 187 H 03/18/22 22:16: POC Glucose 122 H Micro: Microbiology 03/16/22 12:30 Blood Culture (Wb) - Anticubital Left Blood Culture - Preliminary No growth in 48 hours. 03/16/22 12:35 Blood Culture (Wb) - Anticubital Right Blood Culture - Preliminary No growth in 48 hours. 03/16/22 14:20 Urine, Clean Catch Urine Culture - Final Escherichia coli 03/16/22 16:00 Mucosa - Nose Respiratory Panel (PCR) - Final 03/16/22 14:20 Urine, Clean Catch Legionella Antigen - Final 03/16/22 14:20 Urine, Clean Catch Streptococcus pneumoniae Antigen (M - Final 03/16/22 11:35 Nasal Secretion SARS-CoV-2 & FLU Antigen (Rapid) - Final Influenzae B SARS-CoV-2 (COVID 19) Radiography Diagnostic Testing: Radiology Impression Abdomen Ultrasound 03/18/22 08:01 IMPRESSION: Fatty liver with likely focal fatty sparing along the falciform ligament Echogenic sludge within the gallbladder but no sonographic evidence of acute gallbladder disease Nonspecific echogenic pancreas Electronically Signed: Nicholas Guerrero MD at 11:58 EDT , Physical Exam Const alert and no apparent distress General Appearance: cooperative HEENT normocephalic and head/scalp atraumatic Eyes PERRL, EOMs intact bilaterally and conjunctivae normal Neck supple General: trachea midline Chest inspection of chest normal Resp normal respiratory effort and no use of accessory muscles Effort and Inspection: able to speak in complete sentences Auscultation: Negative for rales, rhonchi or wheezes Cardio regular rate, regular rhythm, S1 normal heart sound and S2 normal heart sound GI normal to inspection, nondistended, normoactive bowel sounds Extremity no clubbing, cyanosis or edema Skin no rashes or lesions noted Neuro CN's II-XII intact bilaterally, moves all extremities and no focal motor deficits Psych Mood & Affect: flat affect Charges/Coding Visit Charges Inpatient E&M: 70905 Subs Hosp L2
[2022-03-19 06:56] LABS: Bedside Glucose 128 mg/dL (74-106)
[2022-03-19] MEDS: Polyethylene Glycol 3350 17 GM PACKET PO (07:43)
[2022-03-19] MEDS: Acetaminophen 325 MG Tablet 650 MG PO ×3 (07:45→22:52)
[2022-03-19] MEDS: Heparin Injection (Vial) 5,000 UNIT/ML VIAL 5000 UNIT SC ×2 (07:45→20:58)
[2022-03-19] MEDS: Senna/Docusate Sodium 1 Tablet 2 TABLET PO ×2 (07:47→20:59)
[2022-03-19] MEDS: lamoTRIgine 25 MG Tablet 50 MG PO (07:48)
[2022-03-19] MEDS: busPIRone 15 MG TABLET 30 MG PO ×2 (07:48→20:58)
[2022-03-19] MEDS: Tolterodine Tartrate 2 MG CAP.SA PO (07:48)
[2022-03-19] MEDS: OLANZapine 10 MG Tablet 20 MG PO (07:48)
[2022-03-19] MEDS: Escitalopram Oxalate 20 MG Tablet PO (07:49)
--- NOTE | 2022-03-19 08:40 | PN.HOSP_ITS ---
Subjective Subjective Follow-up for COVID-19 infection and sepsis. Objective Data Objective Data Vital Signs: Vital Signs Temp Pulse Resp BP Pulse Ox 98.6 F 103 H 18 108/66 98 03/19/22 06:47 03/19/22 07:00 03/19/22 06:47 03/19/22 06:47 03/19/22 07:23 Oxygen Delivery Method Room Air Weight: 123 lb 14.397 oz Body Mass Index (BMI) 18.5 Intake & Output: Intake and Output for Last 24 Hours 03/17/22 03/18/22 03/19/22 23:59 23:59 23:59 Intake Total 4993.33 / 4993.33 3006.67 / 3006.67 1000 / 1000 Output Total 7050 / 7050 2700 / 2700 Balance -205.67 / -2055. 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 Status Active Problem Recommendation Dietitian Recommendations/Changes Will change diet to Consistent CHO - easy to chew d/t edentulous Will provide 8 oz chocolate glucerna shake w/ meals for increased nutrition if consumed Provide additional diet education at time of follow up prn. Lab / Micro Data Result Diagrams: 03/19/22 08:10 03/19/22 08:10 Labs: Laboratory Results - last 24 hr 03/18/22 10:59: POC Glucose 90 03/18/22 16:01: POC Glucose 187 H 03/18/22 22:16: POC Glucose 122 H 03/19/22 06:46: POC Glucose 128 H Micro: Microbiology 03/16/22 12:30 Blood Culture (Wb) - Anticubital Left Blood Culture - Preliminary No growth in 48 hours. 03/16/22 12:35 Blood Culture (Wb) - Anticubital Right Blood Culture - Preliminary No growth in 48 hours. 03/16/22 14:20 Urine, Clean Catch Urine Culture - Final Escherichia coli 03/16/22 16:00 Mucosa - Nose Respiratory Panel (PCR) - Final 03/16/22 14:20 Urine, Clean Catch Legionella Antigen - Final 03/16/22 14:20 Urine, Clean Catch Streptococcus pneumoniae Antigen (M - F inal 03/16/22 11:35 Nasal Secretion SARS-CoV-2 & FLU Antigen (Rapid) - Final Influenzae B SARS-CoV-2 (COVID 19) Radiography Diagnostic Testing: Radiology Impression Abdomen Ultrasound 03/18/22 08:01 IMPRESSION: Fatty liver with likely focal fatty sparing along the falciform ligament Echogenic sludge within the gallbladder but no sonographic evidence of acute gallbladder disease Nonspecific echogenic pancreas Electronically Signed: Nicholas Guerrero MD at 11:58 EDT , Physical Exam Narrative No cough, shortness of breath. Patient is still has mild abdominal pain. Seen and examined. Pulse ox 98% on room air. Heart rate in 90s to low 100s. General: Awake, awake and oriented x3. HEENT: Atraumatic, PERRLA, EOMI, Normocephalic Oral: No Gingival or Mucosal Lesions/ Ulcerations Neck: Supple, No JVD, Negative Carotid Bruits Lungs: Air entry diminished in bilateral lung bases. No hypoxia or tachypnea no rales wheezing or crepitations. Cardiovascular: Sinus rhythm at 90s normal S1, Normal S2, No murmurs Abdomen: Soft Generalized mild tenderness. No guarding/rigidity. Bowel Sounds Present, Soft, Non-Distended : No renal angle tenderness. No suprapubic tenderness. Extremities: No edema, Capillary Refill Less than 3 Seconds Skin: No rashes, No breakdown Musculoskeletal: No Tenderness to Palpation of Joints or Extremities Neurological: Cranial nerves II-XII grossly intact, DTR 2+/4 and Symmetrical, Neuro grossly intact Psych/Mental Status: Flat affect. Assessment & Plan Assessment/Plan (1) COVID-19: (2) Diabetic ketoacidosis: QUALIFIERS: Diabetes mellitus complication detail: without coma Diabetes mellitus type: other specified (including SELVIN) Qualified Code(s): E13.10 - Other specified diabetes mellitus with ketoacidosis without coma (3) Urinary tract infection: QUALIFIERS: Hematuria presence: without hematuria Urinary tract infection type: acute cystitis Qualified Code(s): N30.00 - Acute cystitis without hematuria (4) Acute kidney injury: (5) Sepsis: QUALIFIERS: Acute renal failure type: unspecified Sepsis acute organ dysfunction status: with acute organ dysfunction Sepsis type: sepsis due to unspecified organism Severe sepsis acute organ dysfunction type: acute renal failure Severe sepsis shock status: without septic shock Qualified Code(s): A41.9 - Sepsis, unspecified organism; R65.20 - Severe sepsis without septic shock; N17.9 - Acute kidney failure, unspecified PLAN: The patient is a 37 y/o F is admitted with nausea, vomiting, fever, anuria, abdominal pain, but not diarrhea, tachycardic, tachypneic with lab abnormality suggestive of DKA and suspicion of sepsis. Patient is vaccinated and scored with 2 L but not boosted. #1. Sepsis due to E. coli complicated UTI with sepsis related organ dy sfunction, evidenced by JACKELYN: Rapid COVID antigen positive. COVID-19 PCR negative. Influenza B positive. UA suggestive of pyuria and bacteria respiratory panel and urinary antigens for pneumonia are negative. Inflammatory markers shows elevated LDH, CRP but normal BNP. D-dimer elevated. The patient is started on Tamiflu, adjusted to creatinine clearance. ID is consulted. Some of the features of organ related dysfunction may be confounded by simultaneous DKA. 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 Chest x-ray and CT abdomen individually reviewed. Chest x-ray reported normal. Abdominal CT reported sludge or gallstone with hepatomegaly. Moderate amount of fecal matter in colon. 03/18: Acute liver injury: Patient was started on remdesivir as ID felt true COVID infection. Subsequently, transaminases elevated about 5 times yesterday unclear either from remdesivir or acute cholecystitis. ALT and AST, alkaline phosphatase elevated. GGT 172. Total bili normal. Discussed with ID and r emdesivir discontinued. Right upper quadrant sonogram is ordered further management plan as per sonogram. Follow liver test. Patient on a stool softener for feces in colon. Patient is afebrile. Sinus tachycardia resolved. Overall sepsis improving 03/19: Drug-induced liver injury probably due to remdesivir: Right upper quadrant sonogram was done shows fatty liver, bile ducts within normal limit, GB wall 2.8 mm with negative Luna sign sonographically. CBD 3.8 mm biliary sludge dependent with GB. Normal-size but increased echogenicity of the pancreas. Therefore acute liver injury most related to remdesivir. Liver chemistry shows improvement in transaminases. Alkaline phosphatase elevated. Total bili normal. Monitor liver chemistry. #2. DKA with history of Diabetes mellitus type II: Patient has increased anion gap metabolic acidosis. Being managed on the protocol of DKA with IV fluid resuscitation and insulin drip. Venous duplex of lower extremity negative for acute DVT. 03/18 DKA resolved. #3. Acute Complicated Urinary Tract Infection, labs more consistent with Edenilson lonephritis; however, no stranding on CT: UA upon ED evaluation remarkable, pending UCx, continue IVFs, monitor I/Os, continue IV Rocephin transition as able pending sensitivities and speciation. Bld cx x 2 are negative for 48 hours 03/18: Urine culture growing E. coli more than 100,000 coli, ESBL negative. Continue IV ceftriaxone. 03/19: Urine culture shows E. coli more than 100,000. Continue ceftriaxone. #4. Acute kidney injury may be due to JACKELYN and suspected sepsis: Patient states she did not urinate for last 3 days suggestive of anuria. Admission BUN/Cr 68/7.91, prior baseline creatinine noted to be 0.8-0.9. Patient is getting hydrated. BUN/creatinine improving. Continue to monitor kidney function electrolytes. 03/18: Continued improvement of creatinine. Patient still about 5 L fluid net positive. Total urine output 7 L in last 24-hour 03/19: Creatinine profile shows improvement. But overall improving #5. Electrolyte abnormalities: Hypotonic hyponatremia, hypochloremia with increased anion gap metabolic acidosis due to DKA. Improving trends of electrolytes. Serum magnesium and phosphorus level normal. #6. Anxiety and Depression/bipolar disorder: Monitor and adjust the medication as per creatinine clearance #7. Other comorbidities include chronic cigarette smoking, chronic microcytic anemia: Hemoglobin 10.7, MCV 74.2. Iron panel and guaiac test ordered #8. DVT prophylaxis: SCDs, heparin. Total time of the visit including total time spent in counseling or coordination of care, (more than 50% of the total time, spent in obtaining medical information from nurses and other ancillary care providers,explaining to the patient about labs, imaging, diagnosis and management), discussion with medical economics consultant, review of labs and imaging is 40 minutes. Plan: Possible discharge tomorrow if liver chemistry and creatinine keeps on improving. Charges/Coding Visit Charges Inpatient E&M: 88538 Subs Hosp L2
[2022-03-19 08:45] LABS: Hematocrit 28.3 % (37-47); Hemoglobin 9.1 g/dL (12.0-15.0); Mean Corp Hgb Conc 32.2 g/dL (32-36); Mean Corpuscular Hgb 23.9 pg (27.0-32.0); Mean Corpuscular Volume 74.3 fL (81-99); Mean Platelet Vol. 9.6 fl (6.2-12.0); POSITIVE MORPHOLOGY YES; Platelet Count 535 K/mm3 (150-450); RBC Distribution Width CV 25.8 % (11.6-14.6); RBC Distribution Width SD 68.2 fl (35.1-43.9); Red Blood Count 3.81 M/mm3 (4.2-5.4); White Blood Count 9.6 K/mm3 (4.4-11.0)
[2022-03-19 08:46] LABS: Scan Indicated on CBC? Y/N YES- FLAGS NOTED
[2022-03-19 08:59] LABS: ALB/GLOB Ratio 0.5 RATIO (0.9-2.4); AST(SGOT) 65 U/L (15-37); Alanine Aminotransfer ALT/SGPT 125 U/L (13-56); Alkaline Phosphatase 671 U/L (45-117); Anion Gap 7 (5-15); BUN 23 mg/dL (7-18); BUN/Creat Ratio 15.3 RATIO (10-20); Calcium,Total 8.4 mg/dL (8.5-10.1); Chloride 107 mmol/L (98-107); EST Glomerular Filtration Rate 42 mL/min (>60); Est Glom Filt Rate - Afr Amer 50 mL/min (>60); Estimated Creatinine Clearance 45.56 ml/min; Globulin 4.1 g/dL (2.2-4.2); Glucose 118 mg/dL (74-106); Potassium 4.6 mmol/L (3.5-5.1); Protein, Total 6.1 g/dL (6.4-8.2); Sodium Level 135 mmol/L (136-145)
[2022-03-19] MEDS: Ceftriaxone 1 GM/50 ML BAG IV (10:35)
[2022-03-19 12:00] LABS: Differential Comment SCANNED
[2022-03-19] MEDS: Insulin Lispro 100 UNIT/ML INSULN.PEN SC ×2 (12:06→16:55)
[2022-03-19 12:10] LABS: Bedside Glucose 241 mg/dL (74-106)
[2022-03-19 17:05] LABS: Bedside Glucose 190 mg/dL (74-106)
[2022-03-19] MEDS: Ondansetron 4 MG/2 ML Vial IV (18:43)
[2022-03-19] MEDS: 0.9% Saline Lock 10 ML Syringe IV ×2 (18:43→20:59)
[2022-03-19] MEDS: Doxazosin 1 MG Tablet PO (20:58)
[2022-03-19 21:16] LABS: Bedside Glucose 121 mg/dL (74-106)
[2022-03-20 03:08] VITALS: BP 102/59; PULSE 77; RESP 16; TEMP 36.4; O2SAT 97
[2022-03-20] MEDS: Ondansetron 4 MG/2 ML Vial IV (03:08)
[2022-03-20] MEDS: 0.9% Saline Lock 10 ML Syringe IV (03:09)
[2022-03-20 03:24] VITALS: PULSE 98
[2022-03-20 05:59] LABS: ALB/GLOB Ratio 0.5 RATIO (0.9-2.4); AST(SGOT) 32 U/L (15-37); Alanine Aminotransfer ALT/SGPT 107 U/L (13-56); Albumin, Serum 2.2 g/dL (3.2-5.0); Alkaline Phosphatase 624 U/L (45-117); Anion Gap 7 (5-15); BUN 19 mg/dL (7-18); BUN/Creat Ratio 15.6 RATIO (10-20); Calcium,Total 9.1 mg/dL (8.5-10.1); Chloride 103 mmol/L (98-107); Creatinine, Serum 1.22 mg/dL (0.55-1.02); EST Glomerular Filtration Rate 53 mL/min (>60); Est Glom Filt Rate - Afr Amer 64 mL/min (>60); Estimated Creatinine Clearance 56.01 ml/min; Globulin 4.8 g/dL (2.2-4.2); Glucose 121 mg/dL (74-106); Potassium 4.6 mmol/L (3.5-5.1); Sodium Level 134 mmol/L (136-145)
[2022-03-20 06:40] LABS: Bedside Glucose 132 mg/dL (74-106)
[2022-03-20 08:00] VITALS: PULSE 115
--- NOTE | 2022-03-20 09:02 | PN.CC_ITS ---
Assessment & Plan Assessment/Plan (1) Sepsis: QUALIFIERS: Sepsis type: sepsis due to unspecified organism Sepsis acute organ dysfunction status: with acute organ dysfunction Severe sepsis acute organ dysfunction type: acute renal failure Acute renal failure type: unspecified Severe sepsis shock status: without septic shock Qualified Code(s): A41.9 - Sepsis, unspecified organism; R65.20 - Severe sepsis without septic shock; N17.9 - Acute kidney failure, unspecified (2) Acute kidney injury: PLAN: RECOMMENDATIONS: 1. No therapy required for COVID-19. Isolation per infectious disease 2. Continue antimicrobials to complete 7 days of therapy for pansensitive E. coli UTI. 3. Continue nicotine replacement therapy. 4. Encourage incentive spirometer use and mobilize patient as tolerated. 5. Hemodynamically stable on room air. Will sign off from a critical care perspective IMPRESSIONS: 1. Sepsis The patient presented to the hospital with sepsis due to E. coli UTI with acute sepsis related organ dysfunction as evidenced by acute kidney injury. The patient was subsequently volume resuscitated and placed on empiric antimic robials. Although the patient initially tested positive for influenza and COVID on her rapid antigen testing, subsequent PCR was negative. Chest x-ray was unremarkable and the patient has been maintaining appropriate oxygen saturations on room air. Okay to discharge from a pulmonary perspective. No follow-up would be required. 2. Acute kidney injury Improving. Likely prerenal in etiology and related to #1 and generalized intravascular volume depletion in the setting of protracted nausea and vomiting. Anticipate further improvement in creatinine and urine output with ongoing volume resuscitation. Continue to monitor urine output. No current indication for renal replacement therapy. 3. Acute liver injury Unclear precipitating etiology. Right upper quadrant ultrasound did not reveal acute disease. Her remdesivir has been discontinued in light of her elevated transaminases. Follow-up morning lab work is still pending. 4. Chronic tobacco dependency Tobacco cessation counseling was provided. Nicotine replacement therapy will be utilized while the patient is admitted to the hospital. 5. Chronic anemia/anxiety/depression/diabetes mellitus Complicates care, management, recovery and prognosis. Continue Accu-Cheks and sliding scale insulin coverage. This note was generated with [employer] software. It may contain incorrect words, spelling, and punctuation that were not noted in checking the note before signing. Subjective Subjective Patient did well overnight. Patient feels that she is back to her baseline at this time. Patient is not reporting any dysuria. No cough or shortness of breath has been reported. Patient does state that she feels a tightness in her chest with a nagging pain with deep inhalation. Objective Data Objective Data Vital Signs: Vital Signs Temp Pulse Resp BP Pulse Ox 36.4 C L 98 16 102/59 L 97 03/20/22 03:08 03/20/22 03:24 03/20/22 03:08 03/20/22 03:08 03/20/22 03:08 Oxygen Delivery Method Room Air Weight: 55.8 kg Body Mass Index (BMI) 18.5 Intake & Output: Intake and Output for Last 24 Hours 03/18/22 03/19/22 03/20/22 23:59 23:59 23:59 Intake Total 3006.67 / 3006.67 2039 Output Total 2700 / 2700 Balance 306.67 / 306.67 2039 Medical Nutrition Assessment Dietitian: Malnutrition Criteria Met Start: 03/17/22 07:51 Freq: Status: Active Protocol: Document 03/17/22 09:37 SLA (Rec: 03/17/22 09:38 SLA [id number]) Nutrition Malnutrition Evidence of Malnutrition Exists Yes Malnutrition (severe): Acute Illness/Injury Evidenced By Suboptimal Energy Intake ( Severe),Weight Loss (Severe) Clinical Problem Acute Disease or Injury Related Malnutrition Etiology related to acute illness ( COVID) and 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 Status Active Problem Recommendation Dietitian Recommendations/Changes Will change diet to Consistent CHO - easy to chew d/t edentulous Will provide 8 oz chocolate glucerna shake w/ meals for increased nutrition if consumed Provide additional diet education at time of follow up prn. Lab / Micro Data Result Diagrams: 03/19/22 08:10 03/20/22 05:10 Labs: Laboratory Results - last 24 hr 03/19/22 08:10: Differential Comment SCANNED 03/19/22 12:03: POC Glucose 241 H 03/19/22 16:54: POC Glucose 190 H 03/19/22 20:47: POC Glucose 121 H 03/20/22 05:10: Sodium 134 L, Potassium 4.6, Chloride 103, Carbon Dioxide 24.0, Anion Gap 7, BUN 19 H, Creatinine 1.22 H, Estim Creat Clear Calc 56.01, Est GFR (MDRD) Af Amer 64, Est GFR (MDRD) Non-Af 53 L, BUN/Creatinine Ratio 15.6, Glucose 121 H, Calcium 9.1, Total Bilirubin 0.40, AST 32, ALT 107 H, Alkaline Phosphatase 624 H, Total Protein 7.0, Albumin 2.2 L, Globulin 4.8 H, Albumin/Globulin Ratio 0.5 L 03/20/22 06:24: POC Glucose 132 H Micro: Microbiology 03/16/22 12:30 Blood Culture (Wb) - Anticubital Left Blood Culture - Preliminary No growth in 48 hours. 03/16/22 12:35 Blood Culture (Wb) - Anticubital Right Blood Culture - Preliminary No growth in 48 hours. 03/16/22 14:20 Urine, Clean Catch Urine Culture - Final Escherichia coli 03/16/22 16:00 Mucosa - Nose Respiratory Panel (PCR) - Final 03/16/22 14:20 Urine, Clean Catch Legionella Antigen - Final 03/16/22 14:20 Urine, Clean Catch Streptococcus pneumoniae Antigen (M - Final 03/16/22 11:35 Nasal Secretion SARS-CoV-2 & FLU Antigen (Rapid) - Final Influenzae B SARS-CoV-2 (COVID 19) Physical Exam Const alert and no apparent distress General Appearance: cooperative HEENT normocephalic and head/scalp atraumatic Eyes PERRL, EOMs intact bilaterally and conjunctivae normal Neck supple General: trachea midline Chest inspection of chest normal Resp normal respiratory effort and no use of accessory muscles Effort and Inspection: able to speak in complete sentences Auscultation: Negative for rales, rhonchi or wheezes Cardio regular rate, regular rhythm, S1 normal heart sound and S2 normal heart sound GI normal to inspection, nondistended, normoactive bowel sounds Extremity no clubbing, cyanosis or edema Skin no rashes or lesions noted Neuro CN's II-XII intact bilaterally, moves all extremities and no focal motor deficits Psych Mood & Affect: flat affect Charges/Coding Visit Charges Inpatient E&M: 21945 Subs Hosp L2
[2022-03-20] MEDS: Ceftriaxone 1 GM/50 ML BAG IV (10:06)
[2022-03-20] MEDS: Heparin Injection (Vial) 5,000 UNIT/ML VIAL 5000 UNIT SC (10:11)
[2022-03-20] MEDS: Escitalopram Oxalate 20 MG Tablet PO (10:11)
[2022-03-20] MEDS: Tolterodine Tartrate 2 MG CAP.SA PO (10:11)
[2022-03-20] MEDS: busPIRone 15 MG TABLET 30 MG PO (10:11)
[2022-03-20] MEDS: lamoTRIgine 25 MG Tablet 50 MG PO (10:11)
[2022-03-20] MEDS: Polyethylene Glycol 3350 17 GM PACKET PO (10:12)
[2022-03-20] MEDS: Pantoprazole Sodium 40 MG Tablet PO (10:12)
[2022-03-20] MEDS: OLANZapine 10 MG Tablet 20 MG PO (10:13)
[2022-03-20] MEDS: Senna/Docusate Sodium 1 Tablet 2 TABLET PO (10:13)
[2022-03-20 10:15] VITALS: BP 101/53; PULSE 123; RESP 18; TEMP 37.2; O2SAT 98
--- NOTE | 2022-03-20 10:20 | CASEMGMT ---
SW met with patient. Introduced self and role at [facility]. SW provided patient with list of local Psychiatrists, Healthcare POA paperwork, and [employer] street card. 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
--- NOTE | 2022-03-20 11:32 | DS.PCM_ITS ---
Providers Date of Admission: 03/16/22 Date of Discharge: 03/20/22 Consultations 03/16/22 14:59 Consult: Continuous Improvement Coordinator / Pulmonary Medicine Routine Consulting Provider: Manish Buckner Reason for Consult: Sepsis, COVID, DKA, JACKELYN, UTI EMERGENT Consult: No Notified: Yes Date Notified: 03/16/22 Time Notified: 14:23 Method of Notification: Text 03/17/22 07:09 Consult: Infectious Disease Routine Consulting Provider: Lui Walker Reason for Consult: COVID 19 and Flu B positive EMERGENT Consult: No Notified: Yes Date Notified: 03/17/22 Time Notified: 07:09 Method of Notification: Text Reason For Visit: DKA, COVID/?INFLUENZA, JACKELYN, UTI Diagnosis Discharge Diagnosis (1) Sepsis: Status: Acute Code(s): A41.9 - Sepsis, unspecified organism Qualifiers: Sepsis type: sepsis due to unspecified organism Sepsis acute organ dysfunction status: with acute organ dysfunction Severe sepsis acute organ dysfunction type: acute renal failure Acute renal failure type: unspecified Severe sepsis shock status: without septic shock Qualified Code(s): A41.9 - Sepsis, unspecified organism; R65.20 - Severe sepsis without septic shock; N17.9 - Acute kidney failure, unspecified (2) Acute kidney injury: Status: Acute Code(s): N17.9 - Acute kidney failure, unspecified (3) Urinary tract infection: Status: Acute Code(s): N39.0 - Urinary tract infection, site not specified Qualifiers: Urinary tract infection type: acute cystitis Hematuria presence: without hematuria Qualified Code(s): N30.00 - Acute cystitis without hematuria (4) Influenza B: Status: Acute Code(s): J10.1 - Influenza due to other identified influenza virus with other respiratory manifestations Medications at Discharge Home Medications Jardiance 25 mg PO DAILY 03/16/22 buspirone 30 mg PO BID 03/16/22 cyclobenzaprine 7.5 mg PO TID PRN 03/16/22 escitalopram oxalate 20 mg PO DAILY 03/16/22 glipizide 2.5 mg PO BID@0900,1700 03/16/22 hydroxyzine HCl 50 mg PO TID PRN 03/16/22 lisinopril 2.5 mg PO DAILY 03/16/22 lubiprostone 8 mcg PO BID 03/16/22 naproxen 500 mg PO BID PRN 03/16/22 olanzapine 20 mg PO DAILY 03/16/22 omeprazole 40 mg PO DAILY 03/16/22 oxybutynin chloride 10 mg PO DAILY 03/16/22 prazosin 1 mg PO QHS 03/16/22 cephalexin 500 mg PO BID #10 cap 03/20/22 lamotrigine [Lamictal] 50 mg PO DAILY 14 Days #28 tab 03/20/22 trazodone 25 mg PO QHS PRN #14 tab 03/20/22 Hospital Course Operations None Procedures None Summary of Care Provided Minutes Spent on Discharge: 37 Hospital Course: Ms. Lopez is a 37-year-old white female who presented to the emergency department [facility] on 03/16/2022 with a chief com plaint of abdominal pain, nausea and vomiting. This had evidently been persistent for approximately 6 days prior to admission. The patient reported that she was vaccinated against COVID-19 but had not been boosted. She stated she had never previously had any issues controlling her blood sugars and denied any known COVID-19 exposures. She did complain of some generalized muscle aches but denied any fevers, chills, rhinorrhea, headaches, or postnasal drip. She did report significant decreased p.o. intake along with decreased urine output over the last several days. Upon presentation to the emergency department she was afebrile but noted to be tachycardic with tenuous hemodynamics. Her oxygen saturation was maintained on room air for the entire hospitalization. Her initial laboratory data revealed a white count of 13,000, D-dimer of 2.4, and her chemistry profile showed a sodium of 125 with a chloride of 87, anion gap of 17, BUN of 68, and a serum creatinine of 7.91. Her lactic acid was normal at 1.0 and her bilirubin was mildly increased to 1.2. CRP was obtained and found to be 232 and her procalcitonin was 0.89. Her urinalysis was positive for leuk esterase and 3+ urine bacteria as well as urine white blood cells. Her initial rapid antigen screen was positive for COVID and influenza however a follow-up respiratory panel PCR was negative. Her COVID PCR was likewise negative. An abdominal CT revealed hepatomegaly with sludge or gallstones in her gallbladder lumen but was otherwise unremarkable. Her chest x-ray was unremarkable. She was treated with IV fluids and started on antibiotic. There was concern for possible mild DKA on presentation and she was placed transiently on insulin drip however upon review of data it seems likely this was hyperglycemia without DKA. Infectious disease was consulted given her positive COVID-19 test and she was initiated on remdesivir as a suspected this this was a true COVID-19 infection but unfortunately she developed transaminitis on the remdesivir and it had to be discontinued. Her transaminitis slowly was improving upon discharge after the remdesivir was discontinued. She was found to have an E. coli UTI and was maintained on IV antibiotics throughout her hospitalization with ceftriaxone. The organism was pansensitive and she was discharged home with Keflex to continue her course for another 3 days. A prescription was sent to the pharmacy. Again, she did not require any supplemental oxygen throughout her entire hospitalization and her labs had returned close to normal other than some mild transaminitis on the day of discharge with marked improvement from previously. She felt much improved and was able to take n.p.o. without any issues. She was discharged home in stable condition on 03/20/2022. Of note given her elevated D-dimer on admission bilateral lower extremity ultrasounds were performed and were negative for clot. A CTA was not performed given her kidney function. We did not pursue this further given her lack of respiratory issues and normalized hemodynamics and lack of supplemental oxygen needs prior to discharge. She also indicated she did not have any further prescriptions for her Lamictal or trazodone and she was given a 2-week supply but recommended she follow-up with her primary care physician within the next 2 to 4 weeks. She was also given a prescription for a glucometer at discharge as she stated she did not have 1. Discharge diagnoses: Sepsis secondary to acute COVID-19 and urinary tract infection COVID-19 infection E. coli UTI JACKELYN-resolving Chronic anemia-stable DM-2 Acute liver injury-resolving Tobacco abuse Anxiety Depression Physical Exam Const alert, oriented x3, no apparent distress and no limitations Constitutional Narrative: Thin, middle-aged white female, appears older than stated age, sitting up in bed watching television, appears comfortable nontoxic General Appearance: cooperative, comfortable and well developed Orientation / Consciousness: awake Exam Limitations: no limitations Nutritional Appearance: thin HEENT normocephalic, head/scalp atraumatic, hearing grossly normal bilaterally and moist oral mucous membranes HEENT Narrative: Dentition is poor, Mallampati is 2, no thrush is present Eyes PERRL, EOMs intact bilaterally and conjunctivae normal Eyes Narrative: No scleral icterus Neck no lymphadenopathy, supple and no JVD Neck Narrative: Trachea midline, no thyroid enlargement Resp normal respiratory effort, no retractions, no use of accessory muscles and clear to auscultation bilaterally Auscultation: Negative for crackles, rales, rhonchi or wheezes Cardio regular rate, regular rhythm, S1 normal heart sound, S2 normal heart sound, no murmurs, no rub, no gallops, no clicks and no JVD GI normal to inspection, nondistended, normoactive bowel sounds, soft to palpation, non-tender and non-distended; Negative for hepatosplenomegaly Extremity normal to inspection and no clubbing, cyanosis or edema Skin no rashes or lesions noted, no wounds, skin turgor normal and no jaundice Skin Narrative: Multiple tattoos Neuro oriented x3, CN's II-XII intact bilaterally, moves all extremities and no focal motor deficits Sensorium / Orientation: awake and alert Speech: speech normal Motor Exam: strength 5/5 throughout Psych Psych Narrative: Affect is somewhat flat but eye contact is good Medical Records Data Medical Nutrition Assessment Dietitian: Malnutrition Criteria Met Start: 03/17/22 07:51 Freq: Status: Active Protocol: Document 03/17/22 09:37 [facility] (Rec: 03/17/22 09:38 [facility] [id number]) Nutrition Malnutrition Evidence of Malnutrition Exists Yes Malnutrition (severe): Acute Illness/Injury Evidenced By Suboptimal Energy Intake ( Severe),Weight Loss (Severe) Clinical Problem Acute Disease or Injury Related Malnutrition Etiology related to acute illness ( COVID) and having nausea/ vomiting x 6 days 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 Status Active Problem Recommendation Dietitian Recommendations/Changes Will change diet to Consistent CHO - easy to chew d/t edentulous Will provide 8 oz chocolate glucerna shake w/ meals for increased nutrition if consumed Provide additional diet education at time of follow up prn. Weight / BMI Weight Weight: 55.8 kg Body Mass Index (BMI) 18.5 ABG / Lab / Microbiology Data Result Diagrams: 03/19/22 08:10 03/20/22 05:10 Laboratory: Laboratory Results - last 24 hr 03/19/22 08:10: Differential Comment SCANNED 03/19/22 12:03: POC Glucose 241 H 03/19/22 16:54: POC Glucose 190 H 03/19/22 20:47: POC Glucose 121 H 03/20/22 05:10: Sodium 134 L, Potassium 4.6, Chloride 103, Carbon Dioxide 24.0, Anion Gap 7, BUN 19 H, Creatinine 1.22 H, Estim Creat Clear Calc 56.01, Est GFR (MDRD) Af Amer 64, Est GFR (MDRD) Non-Af 53 L, BUN/Creatinine Ratio 15.6, Glucose 121 H, Calcium 9.1, Total Bilirubin 0.40, AST 32, ALT 107 H, Alkaline Phosphatase 624 H, Total Protein 7.0, Albumin 2.2 L, Globulin 4.8 H, Albumin/Globulin Ratio 0.5 L 03/20/22 06:24: POC Glucose 132 H Microbiology: Microbiology 03/16/22 12:30 Blood Culture (Wb) - Anticubital Left Blood Culture - Preliminary No growth in 48 hours. 03/16/22 12:35 Blood Culture (Wb) - Anticubital Right Blood Culture - Preliminary No growth in 48 hours. 03/16/22 14:20 Urine, Clean Catch Urine Culture - Final Escherichia coli 03/16/22 16:00 Mucosa - Nose Respiratory Panel (PCR) - Final 03/16/22 14:20 Urine, Clean Catch Legionella Antigen - Final 03/16/22 14:20 Urine, Clean Catch Streptococcus pneumoniae Antigen (M - Final 03/16/22 11:35 Nasal Secretion SARS-CoV-2 & FLU Antigen (Rapid) - Final Influenzae B SARS-CoV-2 (COVID 19) Meaningful Use Info Meaningful Use Diagnoses (Choose all that apply): None applicable Discharge Plan Admission Admit Date/Time: 03/16/22 13:54 Primary Reason for Your Visit: Nausea and vomiting Attending Provider: Lisa Buckley Consulting Providers: Shante Madrid ; Lui Walker ; Manish Buckner ; Andrew Pool Discharge Orders/Prescriptions Prescriptions: New trazodone 50 mg Tablet 25 mg PO QHS PRN (Reason: Insomnia) Qty: 14 RF: 0 lamotrigine [Lamictal] 25 mg tablet 50 mg PO DAILY 14 Days Qty: 28 RF: 0 cephalexin 500 mg capsule 500 mg PO BID Qty: 10 RF: 0 Continued oxybutynin chloride 10 mg Tablet Extended Release 24hr 10 mg PO DAILY RF: 0 prazosin 1 mg Capsule 1 mg PO QHS RF: 0 hydroxyzine HCl 50 mg Tablet 50 mg PO TID PRN (Reason: Anxiety) RF: 0 omeprazole 40 mg Capsule,Delayed Release(Dr/Ec) 40 mg PO DAILY RF: 0 glipizide 2.5 mg Tablet Extended Release 24hr 2.5 mg PO BID@0900,1700 RF: 0 buspirone 30 mg Tablet 30 mg PO BID RF: 0 lisinopril 2.5 mg Tablet 2.5 mg PO DAILY RF: 0 olanzapine 20 mg Tablet 20 mg PO DAILY RF: 0 naproxen 500 mg Tablet 500 mg PO BID PRN (Reason: Pain) RF: 0 escitalopram oxalate 20 mg Tablet 20 mg PO DAILY RF: 0 cyclobenzaprine 5 mg Tablet 7.5 mg PO TID PRN (Reason: muscle spasms) RF: 0 lubiprostone 8 mcg Capsule 8 mcg PO BID RF: 0 Jardiance 25 mg Tablet 25 mg PO DAILY RF: 0 Discontinued trazodone 50 mg Tablet 25 mg PO QHS PRN (Reason: Insomnia) RF: 0 lamotrigine 25 mg tablet 50 mg PO DAILY RF: 0 Referrals / Follow Up: Care Physician,No Primary [NON-STAFF] - Disposition Disposition (needs filled in before D/C Order can be placed): Home, Self Care Charges/Coding Visit Charges Inpatient E&M: 24148 Disch Hosp
[2022-03-20 11:37] VITALS: PULSE 123
--- NOTE | 2022-03-20 11:51 | CASEMGMT ---
Per therapy, no need for any equipment or further therapy. Pt states does not have glucometer at home and Dr. Buckley aware to send script for same. Pt to be sent home on previous DM meds and not on insulin. SW provided pt with resources and pt voices no further questions/concerns/needs. Delroy MCCONNELL CM
[2022-03-20] MEDS: Insulin Lispro 100 UNIT/ML INSULN.PEN SC (11:56)
[2022-03-20 12:11] LABS: Bedside Glucose 260 mg/dL (74-106)
--- NOTE | 2022-03-20 14:38 | PHA.DC.MC ---
Pharmacy Service has performed discharge medication reconciliation and counseling for this patient. Patient counseled via telephone due to COVID precautions. 1. CEPHALEXIN 500MG PO BID X 5 DAYS The patient's discharge medication list was reviewed for discrepancies and discrepancies were resolved. Home Medications Jardiance 25 mg PO DAILY 03/16/22 buspirone 30 mg PO BID 03/16/22 cyclobenzaprine 7.5 mg PO TID PRN 03/16/22 escitalopram oxalate 20 mg PO DAILY 03/16/22 glipizide 2.5 mg PO BID@0900,1700 03/16/22 hydroxyzine HCl 50 mg PO TID PRN 03/16/22 lisinopril 2.5 mg PO DAILY 03/16/22 lubiprostone 8 mcg PO BID 03/16/22 naproxen 500 mg PO BID PRN 03/16/22 olanzapine 20 mg PO DAILY 03/16/22 omeprazole 40 mg PO DAILY 03/16/22 oxybutynin chloride 10 mg PO DAILY 03/16/22 prazosin 1 mg PO QHS 03/16/22 cephalexin 500 mg PO BID #10 cap 03/20/22 lamotrigine [Lamictal] 50 mg PO DAILY 14 Days #28 tab 03/20/22 trazodone 25 mg PO QHS PRN #14 tab 03/20/22 The patient was counseled on the following discharge medications and changes in medications for homegoing were reviewed. The Reason for Use, instructions for use, and potential side effects were reviewed for all new medications. The patient's questions regarding all of their medications were answered. The patient was able to verbally demonstrate an understanding of their discharge medications.
--- NOTE | 2022-03-23 17:03 | NURSING ---
5.26.22 Pt called at home and she stated that she received a [facility] Patient Link remote patient monitoring kit. Kit explained to pt and she voiced understanding
--- NOTE | 2022-03-24 14:20 | CASEMGMT ---
Pt was provided script for glucometer at discharge but is stating that she does not have. Script re-printed and faxed to [facility] at this time and pt updated by advanced practice nurse who are on the phone with pt. Delroy MCCONNELL CM
--- NOTE | 2022-03-31 14:19 | CASEMGMT ---
JAYESH BOOTH received updated from Soheila NEWBY that patient is having difficulty with transportation to fill prescription for glucometer. Per notes glucometer script was faxed to [facility]. RN LEOBARDO called patient to discuss follow-up with PCP and picking up prescription at [facility]. Per patient she does not have assistance with transportation and uses the bus. RN LEOBARDO asked if she could take bus to [facility] to pickup her prescription for her glucometer. Patient states that she would have to wait an hour till the bus came back and she has social anxiety. RN LEOBARDO inquired if patient had any friends that could assist patient and she states no. RN LEOBAROD inquired about her insurance, patient states she changed from [employer] [facility] to [employer] [facility] but has not received new prescription card. JAYESH BOOTH inquired about establishing with PCP and explained that Dr. House's office is affiliated with the [facility] and patient could utilize [facility] for appts. Patient agreeable to JAYESH BOOTH making appt with Dr. House's office. JAYESH BOOTH to follow-up on Sunday and coordinate new patient appt with [facility]. JAYESH BOOTH called [facility] to inquire about glucometer prescription. Per Vickie at [facility], prescription is ready for pickup and no cost for glucometer but will need to be picked up by tomorrow or it will be returned to the shelf. JAYESH BOOTH explained difficulty for patient to have transportation to fill prescription. Per Vickie, prescription and be shipped via [employer] to patient if patient and call and confirm address. JAYESH BOOTH inquired if this RN CM could confirm for patient, Vickie confirmed yes. RN LEOBARDO called patient and asked permission for glucometer to be shipped to her. Patient gave permission and confirmed address with this CM. RN LEOBARDO called Vickie at [facility] and confirmed patient's address and prescription will be sent out on Sunday with next shipment. JAYESH BOOTH updated Soheila Og regarding prescription being shipped to patient. JAYESH BOOTH to follow up with patient on Sunday04/03/22 to setup PCP appt.
--- NOTE | 2022-04-04 11:28 | CASEMGMT ---
JAYESH BOOTH called [facility] to schedule new patient appt. Patient has appt for 04/17/[address] Wilks. JAYESH BOOTH called [facility] to arrange transport to appt. [facility] Van will pick patient up at 0930am on 04/17/22 for appt. RN LEOBARDO called patient, no answer voice message left regarding appt and request for call back. RN LEOBARDO will attempt to call patient at later time.
== END 2022-03-20 15:19 | disposition home or self-care (01) | DRG 871 ==
LOC: ED 14:09 → ICU 14:18 → PCU 03-20 06:58 → ICU 03-20 10:02 → PCU 03-20 10:03
PROVIDERS: Internal Medicine; Internal Medicine Critical Care Medicine; Internal Medicine Infectious Disease; Admitting Provider Family Medicine; Emergency Provider Emergency Medicine; Visit Provider Internal Medicine
DX: A41.51 Sepsis due to Escherichia coli [E. coli] (principal); U07.1 COVID-19; N17.9 Acute kidney failure, unspecified; E87.1 Hypo-osmolality and hyponatremia; N30.00 Acute cystitis without hematuria; K71.9 Toxic liver disease, unspecified; E11.65 Type 2 diabetes mellitus with hyperglycemia; F31.9 Bipolar disorder, unspecified; R65.20 Severe sepsis without septic shock; D50.9 Iron deficiency anemia, unspecified; F17.210 Nicotine dependence, cigarettes, uncomplicated; J10.1 Influenza due to other identified influenza virus with other respiratory manifestations; K21.9 Gastro-esophageal reflux disease without esophagitis; F41.9 Anxiety disorder, unspecified; Z71.6 Tobacco abuse counseling; Z79.899 Other long term (current) drug therapy; Z79.84 Long term (current) use of oral hypoglycemic drugs; T50.995A Adverse effect of other drugs, medicaments and biological substances, initial encounter
CPT/HCPCS: 36415; 71046; 74176; 76705; 80048; 80053; 80307; 81001; 82570; 82728; 82962; 82977; 83605; 83615; 83690; 83735; 83880; 84100; 84145; 84300; 84484; 85025; 85027; 85379; 86140; 87040; 87077; 87086; 87088; 87186; 87428; 87449; 87633; 87635; 93970; 97110; 97162; 97166; 97530; 97802; 99285; 99406; J7030; J7050; A4216; J0248; J2405; J7799; U0003; U0005